=== PATIENT | male | born 1945 | race Caucasian/White ===

== ENCOUNTER → 2018-12-20 08:07 | Outpatient (CLI) | payer OTHER, SELFPAY ==
[2018-12-20 09:00] LABS: Add Manual Diff / Slide Review NO; Basophils Absolute Auto 0 /uL (0-100); Basophils Percent Auto 1.3 % (0-2); Eosinophils Absolute Auto 100 /uL (0-450); Eosinophils Percent Auto 1.9 % (2-4); Hematocrit 41.9 % (41-53); Hemoglobin 14.2 g/dL (13.5-17.5); Lymphocytes Absolute Auto 1100 /uL (1100-4500); Lymphocytes Percent Auto 34.9 % (25-40); Mean Corpuscular HGB Conc 33.8 % (30-36); Mean Corpuscular Hemoglobin 33.5 PG (26-34); Mean Corpuscular Volume 99.1 fL (80-100); Monocytes Absolute Auto 400 /uL (0-900); Monocytes Percent Auto 12.2 % (3-14); Neutrophils Absolute Auto 1600 /uL (1500-7000); Neutrophils Percent Auto 49.7 % (50-75); Platelet Count 181 X10^3/uL (150-400); Red Blood Cell Count 4.23 X10^6/uL (4.5-5.9); Red Cell Distribution Width 15.6 % (11.6-14.8); White Blood Cell Count 3.3 X10^3/uL (4.5-11.0)
[2018-12-20 09:16] LABS: Alanine Aminotransferase 24 IU/L (21-72); Albumin 4.1 g/dL (3.5-5.0); Albumin Globulin Ratio 1.5 (1.0-2.8); Alkaline Phosphatase 70 U/L (38-126); Aspartate Aminotransferase 31 IU/L (17-59); BUN Creatinine Ratio 21.1 (6-22); Bilirubin Total 0.7 mg/dL (0.2-1.3); Blood Urea Nitrogen 19 mg/dL (9-20); Carbon Dioxide 29 mmol/L (22-32); Chloride 106 mmol/L (98-107); Cholesterol 220 mg/dL (140-199); Estimated Glomerular Filt Rate > 60.0 mL/min (>60); Globulin 2.8 g/dL (1.7-4.1); Glucose 103 mg/dL (80-110); HDL Cholesterol 54 mg/dL (40-60); HEMOLYSIS < 15 (0-50); LDL Cholesterol Calculated 149 mg/dL (<100); Potassium 4.4 mmol/L (3.4-5.1); Sodium 141 mmol/L (137-145); Total Protein 6.9 g/dL (6.3-8.2); Triglycerides 85 mg/dL (35-150)
[2018-12-20 09:45] LABS: Prostate Specific Antigen Scrn 1.25 ng/mL (0.1-4.0)
== END ==
PROVIDERS: PCP Family Medicine; Visit Provider Family Medicine
DX: D72.819 Decreased white blood cell count, unspecified (principal); I10 Essential (primary) hypertension; Z12.5 Encounter for screening for malignant neoplasm of prostate; Z13.1 Encounter for screening for diabetes mellitus; Z13.220 Encounter for screening for lipoid disorders; Z13.6 Encounter for screening for cardiovascular disorders
CPT/HCPCS: 36415; 80053; 80061; 84443; 85025; G0103

== ENCOUNTER → 2020-01-04 10:09 | Outpatient (CLI) | payer OTHER, SELFPAY ==
[2020-01-04 11:40] LABS: Add Manual Diff / Slide Review NO; Basophils Absolute Auto 0 /uL (0-100); Eosinophils Absolute Auto 100 /uL (0-450); Eosinophils Percent Auto 1.5 % (2-4); Hematocrit 43.1 % (41-53); Hemoglobin 14.4 g/dL (13.5-17.5); Lymphocytes Absolute Auto 1100 /uL (1100-4500); Lymphocytes Percent Auto 27.7 % (25-40); Mean Corpuscular HGB Conc 33.4 % (30-36); Mean Corpuscular Hemoglobin 33.3 PG (26-34); Mean Corpuscular Volume 99.8 fL (80-100); Monocytes Absolute Auto 400 /uL (0-900); Neutrophils Absolute Auto 2400 /uL (1500-7000); Neutrophils Percent Auto 58.8 % (50-75); Platelet Count 173 X10^3/uL (150-400); Red Blood Cell Count 4.31 X10^6/uL (4.5-5.9); Red Cell Distribution Width 16.1 % (11.6-14.8)
[2020-01-04 12:21] LABS: Alanine Aminotransferase 26 IU/L (<50); Albumin 4.1 g/dL (3.5-5.0); Albumin Globulin Ratio 1.6 (1.0-2.8); Alkaline Phosphatase 75 U/L (38-126); Aspartate Aminotransferase 36 IU/L (17-59); BUN Creatinine Ratio 19.4 (6-22); Bilirubin Total 0.7 mg/dL (0.2-1.3); Blood Urea Nitrogen 18 mg/dL (9-20); Calcium 9.6 mg/dL (8.4-10.2); Carbon Dioxide 30 mmol/L (22-32); Chloride 102 mmol/L (98-107); Cholesterol 212 mg/dL (140-199); Estimated Glomerular Filt Rate > 60.0 mL/min (>60); Globulin 2.6 g/dL (1.7-4.1); Glucose 88 mg/dL (80-110); HDL Cholesterol 63 mg/dL (40-60); HEMOLYSIS < 15 (0-50); LDL Cholesterol Calculated 125 mg/dL (<100); Potassium 4.4 mmol/L (3.4-5.1); Sodium 138 mmol/L (137-145); Total Protein 6.7 g/dL (6.3-8.2); Triglycerides 120 mg/dL (35-150)
[2020-01-04 12:51] LABS: Thyroid Stimulating Hormone 2.75 uIU/mL (0.47-4.68)
== END ==
PROVIDERS: PCP Family Medicine; Referring Provider Family Medicine; Visit Provider Family Medicine
DX: I10 Essential (primary) hypertension (principal); C61 Malignant neoplasm of prostate
CPT/HCPCS: 36415; 80053; 80061; 84153; 84443; 85025

== ENCOUNTER → 2020-03-15 09:36 | Outpatient (CLI) | payer OTHER, SELFPAY ==
[2020-03-16 22:46] LABS: COVID19 Sendout Not Detected (Not Detect)
== END ==
PROVIDERS: PCP Family Medicine; Visit Provider Physician Assistant
DX: Z11.59 Encounter for screening for other viral diseases (principal)
CPT/HCPCS: 87635

== ENCOUNTER 2020-03-18 08:02 | Day surgery (SDC) | payer OTHER, SELFPAY ==
[2020-03-13 08:16] VITALS: BMI 38.2
[2020-03-18] VITALS (8 sets, daily range): BP systolic 140–188; BP diastolic 71–111; PULSE 70–86; RESP 9–18; TEMP 36.1–36.7; O2SAT 91–99; BMI 38.2
[2020-03-18] MEDS: LACTATED RINGERS 1,000 ML 42 ML IV (08:47)
--- NOTE | 2020-03-18 09:11 | PM.PREOP ---
Pre-operative Note COVID-19 COVID-19 status: Negative Interval Note History & Physical reviewed/Exam performed by Physician: Yes Changes to H&P: No
[2020-03-18] MEDS: LACTATED RINGERS 1,000 ML 100 ML IV (09:28)
[2020-03-18] MEDS: CEFAZOLIN 2 GM/100 ML FROZ.PIGGY IV (09:32)
--- NOTE | 2020-03-18 09:35 | SUR.OPER ---
Supine on padded OR bed, head on pillow, arms secured on padded arm boards at <90 degrees abduction, legs uncrossed, safety belt at thigh, tape over blanket over lower legs.
--- NOTE | 2020-03-18 09:45 | SUR.OPER ---
Dime size scabbed [place] on abdomen upper left quadrant. Covered by Tegaderm during procedure.
[2020-03-18] MEDS: BUPIVACAINE 0.25% (PF) VIAL 30 ML INJ (09:50)
--- NOTE | 2020-03-18 10:43 | P.OP_ITS ---
Operative Date/Time/Diagnoses Date of procedure: 03/18/20 Time of procedure: 10:43 Pre-op diagnosis: Umbilical hernia Post-op diagnosis: same Procedure & Clinicians Procedure: Open umbilical hernia repair with mesh Same procedure as scheduled: Yes Indications: Symptomatic reducible umbilical hernia Surgeon: Peyman Maravilla Anesthesia Type: General Operative Notes Findings: 2 cm umbilical fascial defect containing omentum Specimen(s): none sent Estimated Blood Loss (mL): 20 Procedure in detail: Patient was brought to the operating room placed supine on the table. Bilateral lower extremity compression devices were applied. General anesthesia was induced and they were intubated with an endotracheal tube. They received 2 g of Ancef prior to skin incision. They were prepped and draped in sterile fashion. A time-out was performed. A curvilinear incision was made inferior to the umbilicus. The subcutaneous tissues were divided. The umbilical hernia was identified and the hernia sac was dissected off the umbilical skin and circumferentially off of the fascia defect. The hernia sac was sharply opened and contained incarcerated omentum. I was able to reduce its content back into the abdomen. I freshened the fascial edges of the defect measured. Using blunt dissection I carefully carefully freed the hernia sac from beneath the fascia defect in order to accomodate the mesh. The fascia defect was 2 cm in maximal diameter. A Bard Ventralex ST hernia patch 6.3 cm was inserted beneath the fascia defect and above the peritoneum in a sublay position. The mesh was anchored in multiple locations using 0 Ethibond. The fascia defect was then reapproximated with 0 Ethibond in a transverse direction. The umbilical skin was tacked to the subcutaneous tissues and then the remainder of the subcutaneous tissues were reapproximated using 3 0 Vicry,l skin closed with 4 0 Monocryl followed by the application of Dermabond and Steri- Strips. Sponge instrument count at the end of the operation was correct. Patient tolerated procedure well was extubated and transferred to postoperative care unit in stable condition. Complications: none Post-operative Condition: stable Disposition: same day surgery
[2020-03-18] MEDS: fentaNYL 100 MCG/2 ML INJ IV ×2 (10:56→11:03)
--- NOTE | 2020-03-18 11:05 | SUR.PHASEI ---
HR AFIB per EKG. Patient asymptomatic. Dr. Maravilla notified, patient to follow up with PCP per MD. Patient notified.
[2020-03-18] MEDS: HYDROCODONE/ACET 5/325 TABLET 1 TAB PO (11:19)
--- NOTE | 2020-03-18 12:29 | SUR.PHASEII ---
Copy of EKG given to patient and . Stressed to patient the importance of following up with his PMD regarding Afib. V/U. Instructed to return to ER if any CP or SOB. V/U. Dressing to umbilicus clean, dry and intact. Patient to main entrance via wheelchair in stable condition.
== END 2020-03-18 12:31 | disposition home or self-care (01) ==
PROVIDERS: PCP Family Medicine; Referring Provider Family Medicine; Visit Provider Surgery
PROC: (CPT 49585; principal; 2020-03-18 09:15)
DX: K42.9 Umbilical hernia without obstruction or gangrene (principal); E66.01 Morbid (severe) obesity due to excess calories; I10 Essential (primary) hypertension; Z68.38 Body mass index [BMI] 38.0-38.9, adult
CPT/HCPCS: 49585; 93005; C1781; J0690; J3010

== ENCOUNTER → 2020-03-24 12:51 | Outpatient (CLI) | payer OTHER, SELFPAY ==
[2020-03-24 13:37] LABS: Add Manual Diff / Slide Review NO; Basophils Absolute Auto 0 /uL (0-100); Basophils Percent Auto 0.9 % (0-2); Eosinophils Absolute Auto 100 /uL (0-450); Eosinophils Percent Auto 1.8 % (2-4); Hematocrit 41.9 % (41-53); Hemoglobin 13.9 g/dL (13.5-17.5); Lymphocytes Absolute Auto 900 /uL (1100-4500); Lymphocytes Percent Auto 18.5 % (25-40); Mean Corpuscular HGB Conc 33.3 % (30-36); Mean Corpuscular Hemoglobin 33.9 PG (26-34); Mean Corpuscular Volume 101.8 fL (80-100); Monocytes Absolute Auto 400 /uL (0-900); Monocytes Percent Auto 8.4 % (3-14); Neutrophils Absolute Auto 3600 /uL (1500-7000); Neutrophils Percent Auto 70.4 % (50-75); Platelet Count 170 X10^3/uL (150-400); Red Blood Cell Count 4.12 X10^6/uL (4.5-5.9); Red Cell Distribution Width 13.9 % (11.6-14.8); White Blood Cell Count 5.1 X10^3/uL (4.5-11.0)
[2020-03-24 14:00] LABS: BUN Creatinine Ratio 24.5 (6-22); Blood Urea Nitrogen 23 mg/dL (9-20); Calcium 8.8 mg/dL (8.4-10.2); Carbon Dioxide 30 mmol/L (22-32); Chloride 105 mmol/L (98-107); Estimated Glomerular Filt Rate > 60.0 mL/min (>60); Glucose 90 mg/dL (80-110); HEMOLYSIS < 15 (0-50); Magnesium 2.4 mg/dL (1.6-2.3); Potassium 4.3 mmol/L (3.4-5.1); Sodium 140 mmol/L (137-145)
== END ==
PROVIDERS: PCP Family Medicine; Referring Provider Family Medicine; Visit Provider Family Medicine
DX: I48.91 Unspecified atrial fibrillation (principal)
CPT/HCPCS: 36415; 80048; 83735; 85025

== ENCOUNTER → 2020-04-08 07:59 | Outpatient (CLI) | payer OTHER, SELFPAY ==
--- NOTE | 2020-04-08 08:01 | DI.ECHO.S_ITS ---
[facility] +---------+ [facility] +---------+ : : [address] : [place] : : : : [id number] : : : : Phone: [phone]+ Echocardiogram Report + + :Name: HANNA BEYER Study Date: 04/08/2020 Height: 70 in : :[facility] Weight: 250 lb : : Gender: Male BSA: 2.3 m2 : :: 1945 Age: 74 yrs BP: 149/91 mmHg: :Reason For Study: AFIB : :Ordering Physician: DEWEY FRANCESPerformed By: Katerin Cardona : :Referring: DEWEY FRANCES : + + Interpretation Summary The left ventricle is normal in size. The ejection fraction is estimated to be 60-65%. The right ventricle is normal in size and function. There is mild to moderate mitral regurgitation. There is mild aortic regurgitation. The ascending aorta is mildly enlarged. Procedure: A two-dimensional transthoracic echocardiogram with color flow and Doppler was performed. The study quality was technically adequate. There is no prior echocardiogram noted for this patient. The patient was in atrial fibrillation with heart rates between 64-80 bpm during the exam. Left Ventricle: The left ventricle is normal in size. There is mild concentric left ventricular hypertrophy. There is no thrombus. The ejection fraction is estimated to be 60-65%. There are no focal wall motion abnormalities. Diastolic function could not be accurately assessed due to atrial fibrillation. E/E' med: 13.8. Right Ventricle: The right ventricle is normal in size and function. Atria: The left atrium is severely dilated. The right atrium is mildly dilated. A patent foramen ovale is suspected. Mitral Valve: The mitral valve leaflets appear mildly thickened, but open well. The mitral valve leaflets are slightly calcified. There is mild to moderate mitral regurgitation. Aortic Valve: The aortic valve is trileaflet. The aortic valve opens well. The aortic valve is slightly calcified. There is no aortic valve stenosis. There is mild aortic regurgitation. Tricuspid Valve: The tricuspid valve is normal. There is mild tricuspid regurgitation. Pulmonary artery pressures cannot be estimated because of the lack of a measurable TR jet velocity but the IVC suggests a CVP of around 3 mmHg. Pulmonic Valve: The pulmonic valve leaflets are thin and pliable; valve motion is normal. There is trace pulmonic regurgitation. Great Vessels: The aortic root is mildly dilated. The ascending aorta is mildly enlarged. The IVC is of normal diameter and collapses greater than 50% with a sniff. This suggests a low right atrial pressure of 3 mm Hg. Pericardium/ Pleura There is no pericardial effusion. There is an anterior echo-free space consistent with a fat pad. There is no pleural effusion. MMode/2D Measurements & Calculations LVIDd: 5.8 cm LVOT diam: 2.4 cm LVIDs: 4.1 cm Ao root diam: 4.1 cm FS: 29.5 % asc Aorta Diam: 4.1 cm EPSS: 0.92 cm Ao Arch Diam (Prox Trans): 3.5 cm IVSd: 1.1 cm LVPWd: 1.0 cm LV spencer. diameter/BSA (cm/m^2): 2.5 LV sys. diameter/BSA (cm/m^2): 1.8 LA A2 area: 31.0 cm2 RA long axis: 5.9 cm LA A4 area: 28.4 cm2 RA area: 22.3 cm2 LA length (vol): 6.7 cm RA vol: 71.1 ml LA vol: 111.5 ml RA : 31.0 ml/m2 LA vol index: 48.6 ml/m2 IVC diam: 1.8 cm RVD1 (basal): 3.3 cm TAPSE: 2.3 cm Doppler Measurements & Calculations Ao V2 max: 149.1 cm/sec LVOT Max Gibran: 96.6 cm/sec Ao V2 mean: 97.9 cm/sec LV V1 max P.7 mmHg Ao max P.0 mmHg LV V1 VTI: 19.2 cm Ao mean P.5 mmHg GREGORIO(I,D): 3.1 cm2 Ao V2 VTI: 26.9 cm GREGORIO(V,D): 2.8 cm2 sev ratio: 0.72 GREGORIO indexed to BSA (cm^2/m^2): 1.4 AI P1/2t: 692.1 msec AI dec slope: 167.4 cm/sec2 MV E max gibran: 92.2 cm/sec PA V2 max: 77.4 cm/sec MV A max gibran: 0.77 cm/sec PA V2 mean: 54.6 cm/sec MV E/A: 119.7 PA mean P.3 mmHg Med Peak E' Gibran: 6.7 cm/sec PA pr(Accel): 31.0 mmHg E/E' med: 13.8 Lat Peak E' Gibran: 11.1 cm/sec E/E' lat: 8.3 E/e' average: 11.0 MV dec time: 0.14 sec SV(OT): 84.5 ml Reading Physician:05:43 PM
== END ==
PROVIDERS: PCP Family Medicine; Referring Provider Family Medicine; Visit Provider Family Medicine
DX: I48.91 Unspecified atrial fibrillation (principal); I34.0 Nonrheumatic mitral (valve) insufficiency; I35.1 Nonrheumatic aortic (valve) insufficiency; Q25.49 Other congenital malformations of aorta
CPT/HCPCS: 93306

== ENCOUNTER → 2020-05-16 09:15 | Outpatient (CLI) | payer OTHER, SELFPAY ==
[2020-05-16 10:32] LABS: BUN Creatinine Ratio 19.4 (6-22); Blood Urea Nitrogen 19 mg/dL (9-20); Calcium 9.4 mg/dL (8.4-10.2); Carbon Dioxide 35 mmol/L (22-32); Chloride 104 mmol/L (98-107); Estimated Glomerular Filt Rate > 60.0 mL/min (>60); Glucose 103 mg/dL (80-110); HEMOLYSIS < 15 (0-50); Potassium 4.8 mmol/L (3.4-5.1); Sodium 139 mmol/L (137-145)
== END ==
PROVIDERS: PCP Family Medicine; Referring Provider Nurse Practitioner; Visit Provider Nurse Practitioner
DX: Z51.81 Encounter for therapeutic drug level monitoring (principal); Z79.899 Other long term (current) drug therapy
CPT/HCPCS: 36415; 80048

== ENCOUNTER → 2021-06-16 09:01 | Outpatient (CLI) | payer OTHER, SELFPAY ==
[2021-06-16 11:17] LABS: Cholesterol 166 mg/dL (140-199); HDL Cholesterol 42 mg/dL (40-60); LDL Cholesterol Calculated 109 mg/dL (<100); Triglycerides 74 mg/dL (35-150)
== END ==
PROVIDERS: PCP Family Medicine; Referring Provider Internal Medicine Cardiovascular Disease; Visit Provider Internal Medicine Cardiovascular Disease
DX: I10 Essential (primary) hypertension (principal)
CPT/HCPCS: 36415; 80061

== ENCOUNTER → 2021-12-02 08:17 | Outpatient (CLI) | payer OTHER, SELFPAY ==
[2021-12-02 08:56] LABS: HEMOLYSIS < 15 (0-50)
[2021-12-02 09:06] LABS: Alanine Aminotransferase 22 IU/L (<50); Albumin Globulin Ratio 1.5 (1.0-2.8); Alkaline Phosphatase 78 U/L (38-126); Aspartate Aminotransferase 34 IU/L (17-59); BUN Creatinine Ratio 17.5 (6-22); Bilirubin Total 0.8 mg/dL (0.2-1.3); Blood Urea Nitrogen 18 mg/dL (9-20); Calcium 8.8 mg/dL (8.4-10.2); Carbon Dioxide 32 mmol/L (22-32); Chloride 105 mmol/L (98-107); Cholesterol 123 mg/dL (140-199); Estimated Glomerular Filt Rate > 60 mL/min (>60); Globulin 2.7 g/dL (1.7-4.1); Glucose 97 mg/dL (80-110); HDL Cholesterol 39 mg/dL (40-60); LDL Cholesterol Calculated 73 mg/dL (<100); Potassium 4.3 mmol/L (3.4-5.1); Sodium 140 mmol/L (137-145); Total Protein 6.7 g/dL (6.3-8.2); Triglycerides 53 mg/dL (35-150)
== END ==
PROVIDERS: PCP Family Medicine; Referring Provider Internal Medicine Cardiovascular Disease; Visit Provider Internal Medicine Cardiovascular Disease
DX: I10 Essential (primary) hypertension (principal)
CPT/HCPCS: 36415; 80053; 80061

== ENCOUNTER → 2022-02-08 08:33 | Outpatient (CLI) | payer OTHER, SELFPAY | PROVIDERS: PCP Family Medicine | DX: C61 Malignant neoplasm of prostate (principal) | CPT/HCPCS: 36415; 84153 ==

== ENCOUNTER 2022-05-10 14:30 | Outpatient (RCR) | payer OTHER, SELFPAY ==
--- NOTE | 2022-04-09 14:37 | PT.OIE ---
Current Diagnoses Pain in left shoulder (04/09/22) Past Medical History (Last Reviewed 01/29/21 @ 15:43 by SANJEEV Curtis) Facial injury History of prostate cancer History of torn meniscus of left knee Hx of skin malignancy Wound infection Visit Care Team Role Provider Type Jacob Brennan DO Attending Provider Physician Family Provider Primary Care Provider Referring Provider Specialty: Family Practice Address: [address] [place] [address], [facility] Email: [email or web address] Physical Therapy Initial Evaluation PT-OP-A Visit Information Start: 04/08/22 20:22 Freq: Status: Active Protocol: Document 04/09/22 07:55 AMB (Rec: 04/09/22 08:23 AMB [id number]) Out-Patient Physical Therapy Visit Information Visit Information Visit Type Initial Evaluation Visit Start Time 08:15 Visit Stop Time 09:00 Total Visit Minutes 45 Visit Number 1 PT-OP-B Current Condition Start: 04/08/22 20:22 Freq: Status: Active Protocol: Document 04/09/22 07:55 AMB (Rec: 04/09/22 08:23 AMB [id number]) Current Condition History of Current Condition Onset Date 2 years Current Complaints L shoulder pain History of Current Condition Shoulder had been bothering him for awhile, did too much weights with exercise. REaching overhead, especially with weight, reaching behind back for. L handed and L shoulder. Likes to golf, likes to work out at the home gym. Has been laying off the home gym for about a year. Deep ache in the front of the shoulder. Denies radiation of sx/neck pain/numbness tingling. Personal Factors Other Personal Factors That May Effect HTN, on eliquis, [place] Therapy/Recovery PT-OP-K Range of Motion Start: 04/08/22 20:22 Freq: Status: Active Protocol: Document 04/09/22 08:15 AMB (Rec: 04/11/22 14:15 AMB [id number]) Shoulder Goniometric Range of Motion Shoulder Left Passive Testing Position Supine Abduction 133 External Rotation at 90 degrees 37 Abduction Internal Rotation 75 Left Active Testing Position Sitting Flexion 155 Abduction 90 Right Active Testing Position Sitting Flexion 167 Abduction 180 PT-OP-L Special Tests Start: 04/08/22 20:22 Freq: Status: Active Protocol: Document 04/09/22 08:15 AMB (Rec: 04/11/22 14:15 AMB [id number]) Special Tests Shoulder Special Tests Neer Impingement Test Results + PT-OP-M Strength Start: 04/08/22 20:22 Freq: Status: Active Protocol: Document 04/09/22 08:15 AMB (Rec: 04/11/22 14:21 AMB [id number]) Shoulder Strength Shoulder Manual Muscle Testing Left Flexion 4 Good Extension 4+ Good+ Abduction (C5) 3+ Fair+ External Rotation 4 Good Internal Rotation 4 Good PT-OP-Q Treatments Start: 04/08/22 20:22 Freq: Status: Active Protocol: Document 04/09/22 08:15 AMB (Rec: 04/11/22 14:15 AMB [id number]) Therapeutic Exercises Sidelying Exercises sleeper stretch Side left Reps/Minutes 30x2 Standing Exercises rows Side bilateral Resistance #4 band Reps/Minutes 2x10 pec stretch corner Side bilateral Reps/Minutes 30x2 Comments abd to 45 to avoid pain PT-OP-T Assessment and Plan Start: 04/08/22 20:22 Freq: Status: Active Protocol: Document 04/09/22 08:15 AMB (Rec: 04/11/22 14:37 AMB [id number]) Physical Therapy Assessment Rehab Potential Rehabilitation Potential Good Evaluation Complexity Number of Personal Factors/Comorbidities 1-2 Number of Body Systems Impaired 3 Clinical Presentation at Evaluation Stable Impairments Impairments Pain,Posture,ROM Goals Two Impairment Pain Short Term Goal (STG) Jevon will put dishes away with 1/10 shoulder pain or less. STG Duration 4 weeks De Icer Installer Goal (LTG) Jevon will reach behind his back to don/doff his belt with pain of 1/10 or less. LTG Duration 8 weeks One Impairment ROM Short Term Goal (STG) Jevon will improve his external rotation to at least 50 degrees passively. STG Duration 4 weeks Intermediate Goal (LTG) Jevon will improve his active abduction to at least 120 degrees. LTG Duration 8 weeks Assessment Summary Assessment Jevon attends PT with restricted and painful left shoulder ROM. He has maintained good strength when the arm is kept in a neutral position. Pain is the worst in abduction and extension/ internal rotation like to reach behind his body for his belt. Denies clicking/locking /radiating sx. Concern for labrum/rotator cuff/biceps tendonopathy. Good strength in biceps. Jevon will benefit from physical therapy for a gentle progression with scapular strengthening with special focus on postures to reduce anterior impingement. Physical Therapy Plan Frequency and Duration Frequency of Treatment 2x/Week Duration of treatment (weeks) 10 Plan of Care Start Date 04/09/22 Plan of Care End Date 06/18/22 Therapeutic Interventions Therapeutic Interventions Home Exercise Program,Joint Mobilizations,Manual Therapy, Neuromuscular Re-education, Self-Care/Home Management, Therapeutic Activities, Therapeutic Exercises Modalities Cold Pack/Ice Massage,Electric Stimulation,Iontophoresis Other Therapeutic Interventions iontophoresis with dexamethasone Next Visit Focus/Plan Next Note Type Treatment Note Next Visit Plan REassess piotr, sleeper stretches and t band rows
--- NOTE | 2022-04-09 14:38 | PT.OPPOC ---
Physical, Occupational & Speech Therapy At Current Diagnoses Pain in left shoulder (04/09/22) Visit Care Team Role Provider Type Jacob Brennan DO Attending Provider Physician Family Provider Primary Care Provider Referring Provider Specialty: Family Practice Address: [address] [place] [address], [id number] Email: [email or web address] Plan Of Care PT-OP-T Assessment and Plan Start: 04/08/22 20:22 Freq: Status: Active Protocol: Document 04/09/22 08:15 AMB (Rec: 04/11/22 14:37 AMB [id number]) Physical Therapy Assessment Rehab Potential Rehabilitation Potential Good Evaluation Complexity Number of Personal Factors/Comorbidities 1-2 Number of Body Systems Impaired 3 Clinical Presentation at Evaluation Stable Impairments Impairments Pain,Posture,ROM Goals Two Impairment Pain Short Term Goal (STG) Jevon will put dishes away with 1/10 shoulder pain or less. STG Duration 4 weeks Assisted Goal (LTG) Jevon will reach behind his back to don/doff his belt with pain of 1/10 or less. LTG Duration 8 weeks One Impairment ROM Short Term Goal (STG) Jevon will improve his external rotation to at least 50 degrees passively. STG Duration 4 weeks Assisted Goal (LTG) Jevon will improve his active abduction to at least 120 degrees. LTG Duration 8 weeks Assessment Summary Assessment Jevon attends PT with restricted and painful left shoulder ROM. He has maintained good strength when the arm is kept in a neutral position. Pain is the worst in abduction and extension/ internal rotation like to reach behind his body for his belt. Denies clicking/locking /radiating sx. Concern for labrum/rotator cuff/biceps tendonopathy. Good strength in biceps. Jevon will benefit from physical therapy for a gentle progression with scapular strengthening with special focus on postures to reduce anterior impingement. Physical Therapy Plan Frequency and Duration Frequency of Treatment 2x/Week Duration of treatment (weeks) 10 Plan of Care Start Date 04/09/22 Plan of Care End Date 06/18/22 Therapeutic Interventions Therapeutic Interventions Home Exercise Program,Joint Mobilizations,Manual Therapy, Neuromuscular Re-education, Self-Care/Home Management, Therapeutic Activities, Therapeutic Exercises Modalities Cold Pack/Ice Massage,Electric Stimulation,Iontophoresis Other Therapeutic Interventions iontophoresis with dexamethasone Next Visit Focus/Plan Next Note Type Treatment Note Next Visit Plan REassess corner, sleeper stretches and t band rows Plan of Care Dates Plan of Care Start Date 04/09/22 Plan of Care End Date 06/18/22 Electronically Signed by: Ricarda Fontanez, PT 04/11/22 2077 If you are in agreement with this Plan of Care, please return a signed and dated copy. I have reviewed this Plan of Care and certify that the skilled therapy services above are required to meet the patient?s needs. Physician Signature Date Printed Name and Credentials Clinical Instructor Signature Printed Name and Credentials
--- NOTE | 2022-04-14 13:24 | PT.OTN ---
Current Diagnoses Pain in left shoulder (04/14/22) Physical Therapy Treatment Note PT-OP-A Visit Information Start: 04/08/22 20:22 Freq: Status: Active Protocol: Document 04/14/22 08:24 AMB (Rec: 04/14/22 09:03 AMB [id number]) Out-Patient Physical Therapy Visit Information Visit Information Visit Type Treatment Note Visit Start Time 08:15 Visit Stop Time 09:00 Total Visit Minutes 45 Visit Number 2 PT-OP-B Current Condition Start: 04/08/22 20:22 Freq: Status: Active Protocol: Document 04/09/22 07:55 AMB (Rec: 04/09/22 08:23 AMB [id number]) Current Condition History of Current Condition Onset Date 2 years Current Complaints L shoulder pain History of Current Condition Shoulder had been bothering him for awhile, did too much weights with exercise. REaching overhead, especially with weight, reaching behind back for. L handed and L shoulder. Likes to golf, likes to work out at the home gym. Has been laying off the home gym for about a year. Deep ache in the front of the shoulder. Denies radiation of sx/neck pain/numbness tingling. Personal Factors Other Personal Factors That May Effect HTN, on eliquis, [place] Therapy/Recovery PT-OP-C Subjective Start: 04/08/22 20:22 Freq: Status: Active Protocol: Document 04/14/22 08:24 AMB (Rec: 04/14/22 09:03 AMB [id number]) OP-PT Subjective Patient Comments Patient Comments Pt reports exercises are going well, has to warm up first with the stretches. PT-OP-K Range of Motion Start: 04/08/22 20:22 Freq: Status: Active Protocol: Document 04/09/22 08:15 AMB (Rec: 04/11/22 14:15 AMB [id number]) Shoulder Goniometric Range of Motion Shoulder Left Passive Testing Position Supine Abduction 133 External Rotation at 90 degrees 37 Abduction Internal Rotation 75 Left Active Testing Position Sitting Flexion 155 Abduction 90 Right Active Testing Position Sitting Flexion 167 Abduction 180 PT-OP-L Special Tests Start: 04/08/22 20:22 Freq: Status: Active Protocol: Document 04/09/22 08:15 AMB (Rec: 04/11/22 14:15 AMB [id number]) Special Tests Shoulder Special Tests Neer Impingement Test Results + PT-OP-M Strength Start: 04/08/22 20:22 Freq: Status: Active Protocol: Document 04/09/22 08:15 AMB (Rec: 04/11/22 14:21 AMB [id number]) Shoulder Strength Shoulder Manual Muscle Testing Left Flexion 4 Good Extension 4+ Good+ Abduction (C5) 3+ Fair+ External Rotation 4 Good Internal Rotation 4 Good PT-OP-Q Treatments Start: 04/08/22 20:22 Freq: Status: Active Protocol: Document 04/14/22 08:24 AMB (Rec: 04/14/22 09:03 AMB [id number]) Gym Equipment Cable Column (Body Solid) Rows Resistance 30 Reps/Time 2x10 Therapeutic Exercises Sidelying Exercises sleeper stretch Side left Reps/Minutes 30x2 Sitting Exercises neftaly Sitting Exercise Name abd, scaption Reps/Minutes 3 min Standing Exercises t band IR Resistance #2 Reps/Minutes 2x10 t band ER Resistance #2 Reps/Minutes 2x10 rows Side bilateral Resistance #4 band Reps/Minutes 2x10 pec stretch corner Side bilateral Reps/Minutes 30x2 Comments abd to 45 to avoid pain Manual Therapy Treatment Soft Tissue Mobilization 1 Body Location subscap Comments with PROM into flex/abd, PT-OP-T Assessment and Plan Start: 04/08/22 20:22 Freq: Status: Active Protocol: Document 04/14/22 08:24 AMB (Rec: 04/14/22 09:03 AMB [id number]) Physical Therapy Assessment Goals Two Impairment Pain Short Term Goal (STG) Jevon will put dishes away with 1/10 shoulder pain or less. STG Duration 4 weeks Custodial Goal (LTG) Jevon will reach behind his back to don/doff his belt with pain of 1/10 or less. LTG Duration 8 weeks One Impairment ROM Short Term Goal (STG) Jevon will improve his external rotation to at least 50 degrees passively. STG Duration 4 weeks Custodial Goal (LTG) Jevon will improve his active abduction to at least 120 degrees. LTG Duration 8 weeks Assessment Summary Assessment Jevon did well with stretching today. Was fairly tight in his lats. Tolerated ER strengthening, but gentle for now. Could consider AAROM dowel vs neftaly for HEP next visit. Physical Therapy Plan Frequency and Duration Frequency of Treatment 2x/Week Duration of treatment (weeks) 10 Plan of Care Start Date 04/09/22 Plan of Care End Date 06/18/22 Next Visit Focus/Plan Next Note Type Treatment Note Next Visit Plan REassess corner, sleeper stretches and t band rows, progress t band HEP, consider AAROM.
--- NOTE | 2022-04-19 08:40 | PT.OTN ---
Current Diagnoses Pain in left shoulder (04/19/22) Physical Therapy Treatment Note PT-OP-A Visit Information Start: 04/08/22 20:22 Freq: Status: Active Protocol: Document 04/19/22 13:26 AMB (Rec: 04/19/22 14:50 AMB [id number]) Out-Patient Physical Therapy Visit Information Visit Information Visit Type Treatment Note Visit Start Time 13:45 Visit Stop Time 14:30 Total Visit Minutes 45 Visit Number 3 PT-OP-B Current Condition Start: 04/08/22 20:22 Freq: Status: Active Protocol: Document 04/09/22 07:55 AMB (Rec: 04/09/22 08:23 AMB [id number]) Current Condition History of Current Condition Onset Date 2 years Current Complaints L shoulder pain History of Current Condition Shoulder had been bothering him for awhile, did too much weights with exercise. REaching overhead, especially with weight, reaching behind back for. L handed and L shoulder. Likes to golf, likes to work out at the home gym. Has been laying off the home gym for about a year. Deep ache in the front of the shoulder. Denies radiation of sx/neck pain/numbness tingling. Personal Factors Other Personal Factors That May Effect HTN, on eliquis, [place] Therapy/Recovery PT-OP-C Subjective Start: 04/08/22 20:22 Freq: Status: Active Protocol: Document 04/19/22 13:26 AMB (Rec: 04/19/22 14:50 AMB [id number]) OP-PT Subjective Patient Comments Patient Comments Pt reports he could feel some muscles after last PT visit. PT-OP-K Range of Motion Start: 04/08/22 20:22 Freq: Status: Active Protocol: Document 04/09/22 08:15 AMB (Rec: 04/11/22 14:15 AMB [id number]) Shoulder Goniometric Range of Motion Shoulder Left Passive Testing Position Supine Abduction 133 External Rotation at 90 degrees 37 Abduction Internal Rotation 75 Left Active Testing Position Sitting Flexion 155 Abduction 90 Right Active Testing Position Sitting Flexion 167 Abduction 180 PT-OP-L Special Tests Start: 04/08/22 20:22 Freq: Status: Active Protocol: Document 04/09/22 08:15 AMB (Rec: 04/11/22 14:15 AMB [id number]) Special Tests Shoulder Special Tests Neer Impingement Test Results + PT-OP-M Strength Start: 04/08/22 20:22 Freq: Status: Active Protocol: Document 04/09/22 08:15 AMB (Rec: 04/11/22 14:21 AMB [id number]) Shoulder Strength Shoulder Manual Muscle Testing Left Flexion 4 Good Extension 4+ Good+ Abduction (C5) 3+ Fair+ External Rotation 4 Good Internal Rotation 4 Good PT-OP-Q Treatments Start: 04/08/22 20:22 Freq: Status: Active Protocol: Document 04/19/22 13:26 AMB (Rec: 04/19/22 14:50 AMB [id number]) Gym Equipment Cable Column (Body Solid) ER Resistance 10 Reps/Time 4- weak IR Resistance 10 Reps/Time 10 Rows Resistance 30 Reps/Time 2x10 Therapeutic Exercises Supine Exercises AAROM Supine Exercise Name cane Reps/Minutes 30x2 Comments flexion Sidelying Exercises sleeper stretch Side left Reps/Minutes 30x2 Sitting Exercises neftaly Sitting Exercise Name abd, scaption Reps/Minutes 3 min Standing Exercises wall walk Standing Exercise Name and lift off Reps/Minutes 10 t band IR Resistance #2 Reps/Minutes 2x10 t band ER Resistance #2 Reps/Minutes 2x10 rows Side bilateral Resistance #4 band Reps/Minutes 2x10 Manual Therapy Treatment Soft Tissue Mobilization 1 Body Location subscap Comments with PROM into flex/abd, PT-OP-T Assessment and Plan Start: 04/08/22 20:22 Freq: Status: Active Protocol: Document 04/19/22 13:26 AMB (Rec: 04/19/22 14:50 AMB [id number]) Physical Therapy Assessment Goals Two Impairment Pain Short Term Goal (STG) Jevon will put dishes away with 1/10 shoulder pain or less. STG Duration 4 weeks Primary Care Provider Goal (LTG) Jevon will reach behind his back to don/doff his belt with pain of 1/10 or less. LTG Duration 8 weeks One Impairment ROM Short Term Goal (STG) Jevon will improve his external rotation to at least 50 degrees passively. STG Duration 4 weeks Mcfp Goal (LTG) Jevon will improve his active abduction to at least 120 degrees. LTG Duration 8 weeks Assessment Summary Assessment Continues to need more L shoulder stretching, so far has not had increased pain with stretching. Weak into ER continues. Physical Therapy Plan Next Visit Focus/Plan Next Visit Plan Progress t band and stretching
--- NOTE | 2022-04-21 21:37 | PT.OTN ---
Current Diagnoses Pain in left shoulder (04/21/22) Physical Therapy Treatment Note PT-OP-A Visit Information Start: 04/08/22 20:22 Freq: Status: Active Protocol: Document 04/21/22 13:48 AMB (Rec: 04/21/22 14:24 AMB [id number]) Out-Patient Physical Therapy Visit Information Visit Information Visit Type Treatment Note Visit Start Time 13:45 Visit Stop Time 14:30 Total Visit Minutes 45 Visit Number 4 PT-OP-B Current Condition Start: 04/08/22 20:22 Freq: Status: Active Protocol: Document 04/09/22 07:55 AMB (Rec: 04/09/22 08:23 AMB [id number]) Current Condition History of Current Condition Onset Date 2 years Current Complaints L shoulder pain History of Current Condition Shoulder had been bothering him for awhile, did too much weights with exercise. REaching overhead, especially with weight, reaching behind back for. L handed and L shoulder. Likes to golf, likes to work out at the home gym. Has been laying off the home gym for about a year. Deep ache in the front of the shoulder. Denies radiation of sx/neck pain/numbness tingling. Personal Factors Other Personal Factors That May Effect HTN, on eliquis, [place] Therapy/Recovery PT-OP-C Subjective Start: 04/08/22 20:22 Freq: Status: Active Protocol: Document 04/21/22 13:48 AMB (Rec: 04/21/22 14:24 AMB [id number]) OP-PT Subjective Patient Comments Patient Comments Pt is getting an injection tomorrow with PCP. PT-OP-K Range of Motion Start: 04/08/22 20:22 Freq: Status: Active Protocol: Document 04/09/22 08:15 AMB (Rec: 04/11/22 14:15 AMB [id number]) Shoulder Goniometric Range of Motion Shoulder Left Passive Testing Position Supine Abduction 133 External Rotation at 90 degrees 37 Abduction Internal Rotation 75 Left Active Testing Position Sitting Flexion 155 Abduction 90 Right Active Testing Position Sitting Flexion 167 Abduction 180 PT-OP-L Special Tests Start: 04/08/22 20:22 Freq: Status: Active Protocol: Document 04/09/22 08:15 AMB (Rec: 04/11/22 14:15 AMB [id number]) Special Tests Shoulder Special Tests Neer Impingement Test Results + PT-OP-M Strength Start: 04/08/22 20:22 Freq: Status: Active Protocol: Document 04/09/22 08:15 AMB (Rec: 04/11/22 14:21 AMB [id number]) Shoulder Strength Shoulder Manual Muscle Testing Left Flexion 4 Good Extension 4+ Good+ Abduction (C5) 3+ Fair+ External Rotation 4 Good Internal Rotation 4 Good PT-OP-Q Treatments Start: 04/08/22 20:22 Freq: Status: Active Protocol: Document 04/21/22 13:45 AMB (Rec: 04/22/22 21:35 AMB [id number]) Gym Equipment Cable Column (Body Solid) Lat Pull Down Resistance 30 Reps/Time 2x10 Therapeutic Exercises Supine Exercises AAROM Supine Exercise Name cane Reps/Minutes 30x2 Comments flexion Sitting Exercises neftaly Sitting Exercise Name abd, scaption Reps/Minutes 3 min Standing Exercises flexion Standing Exercise Name to shoulder height only Resistance 5# Reps/Minutes 2x10 t band IR Resistance #2 Reps/Minutes 2x10 t band ER Resistance #2 Reps/Minutes 2x10 Other Exercises rows Other Exercise Name chest on t ball Side bilateral Resistance 5# Reps/Minutes 2x10 I Y T Other Exercise Name chest on t ball Side bilateral Resistance AROM Reps/Minutes 2x10 nick pose Side bilateral Reps/Minutes 30x2 PT-OP-T Assessment and Plan Start: 04/08/22 20:22 Freq: Status: Active Protocol: Document 04/21/22 13:48 AMB (Rec: 04/21/22 14:24 AMB [id number]) Physical Therapy Assessment Goals Two Impairment Pain Short Term Goal (STG) Jevon will put dishes away with 1/10 shoulder pain or less. STG Duration 4 weeks Fpc Goal (LTG) Jevon will reach behind his back to don/doff his belt with pain of 1/10 or less. LTG Duration 8 weeks One Impairment ROM Short Term Goal (STG) Jevon will improve his external rotation to at least 50 degrees passively. STG Duration 4 weeks Cooper Helper Goal (LTG) Jevon will improve his active abduction to at least 120 degrees. LTG Duration 8 weeks Assessment Summary Assessment Tolerated increased strengthening today without pain during session. Continues to have less ROM on affected shoulder but is improving with flexion. IR/ ext still limited. Physical Therapy Plan Frequency and Duration Frequency of Treatment 2x/Week Duration of treatment (weeks) 10 Plan of Care Start Date 04/09/22 Plan of Care End Date 06/18/22 Therapeutic Interventions Therapeutic Interventions Home Exercise Program,Joint Mobilizations,Manual Therapy, Neuromuscular Re-education, Self-Care/Home Management, Therapeutic Activities, Therapeutic Exercises Modalities Cold Pack/Ice Massage,Electric Stimulation,Iontophoresis Other Therapeutic Interventions iontophoresis with dexamethasone Next Visit Focus/Plan Next Visit Plan Progress t band and stretching
--- NOTE | 2022-04-26 16:02 | PT.OTN ---
Current Diagnoses Pain in left shoulder (04/26/22) Physical Therapy Treatment Note PT-OP-A Visit Information Start: 04/08/22 20:22 Freq: Status: Active Protocol: Document 04/26/22 14:30 AMB (Rec: 04/26/22 16:01 AMB [id number]) Out-Patient Physical Therapy Visit Information Visit Information Visit Type Treatment Note Visit Start Time 13:45 Visit Stop Time 14:30 Total Visit Minutes 45 Visit Number 5 PT-OP-B Current Condition Start: 04/08/22 20:22 Freq: Status: Active Protocol: Document 04/09/22 07:55 AMB (Rec: 04/09/22 08:23 AMB [id number]) Current Condition History of Current Condition Onset Date 2 years Current Complaints L shoulder pain History of Current Condition Shoulder had been bothering him for awhile, did too much weights with exercise. REaching overhead, especially with weight, reaching behind back for. L handed and L shoulder. Likes to golf, likes to work out at the home gym. Has been laying off the home gym for about a year. Deep ache in the front of the shoulder. Denies radiation of sx/neck pain/numbness tingling. Personal Factors Other Personal Factors That May Effect HTN, on eliquis, [email or web address] Therapy/Recovery PT-OP-C Subjective Start: 04/08/22:22 Freq: Status: Active Protocol: Document 04/26/22 14:30 AMB (Rec: 04/26/22 16:01 AMB [id number]) OP-PT Subjective Patient Comments Patient Comments Injection was on noticing more range. Was a little sore in muscles after last visit, but didn't notice extensive joint pain. PT-OP-K Range of Motion Start: 04/08/22 20:22 Freq: Status: Active Protocol: Document 04/09/22 08:15 AMB (Rec: 04/11/22 14:15 AMB [id number]) Shoulder Goniometric Range of Motion Shoulder Left Passive Testing Position Supine Abduction 133 External Rotation at 90 degrees 37 Abduction Internal Rotation 75 Left Active Testing Position Sitting Flexion 155 Abduction 90 Right Active Testing Position Sitting Flexion 167 Abduction 180 PT-OP-L Special Tests Start: 04/08/22 20:22 Freq: Status: Active Protocol: Document 04/09/22 08:15 AMB (Rec: 04/11/22 14:15 AMB [id number]) Special Tests Shoulder Special Tests Neer Impingement Test Results + PT-OP-M Strength Start: 04/08/22 20:22 Freq: Status: Active Protocol: Document 04/09/22 08:15 AMB (Rec: 04/11/22 14:21 AMB [id number]) Shoulder Strength Shoulder Manual Muscle Testing Left Flexion 4 Good Extension 4+ Good+ Abduction (C5) 3+ Fair+ External Rotation 4 Good Internal Rotation 4 Good PT-OP-Q Treatments Start: 04/08/22 20:22 Freq: Status: Active Protocol: Document 04/26/22 14:30 AMB (Rec: 04/26/22 16:01 AMB [id number]) Gym Equipment Cable Column (Body Solid) Lat Pull Down Resistance 40, 50 Reps/Time 1x10 ea ER Resistance 10 Reps/Time 18 IR Resistance 10 Reps/Time 2x10 Therapeutic Exercises Sitting Exercises neftaly Sitting Exercise Name abd, scaption, IR Reps/Minutes 3 min ea Standing Exercises wall pushups Reps/Minutes 2x10 flexion Standing Exercise Name to shoulder height only Resistance 5# Reps/Minutes 2x10 wall walk Standing Exercise Name and lift off Reps/Minutes 10 PT-OP-T Assessment and Plan Start: 04/08/22 20:22 Freq: Status: Active Protocol: Document 04/26/22 14:30 AMB (Rec: 04/26/22 16:01 AMB [id number]) Physical Therapy Assessment Goals Two Impairment Pain Short Term Goal (STG) Jevon will put dishes away with 1/10 shoulder pain or less. STG Duration 4 weeks Skilled Nursing Goal (LTG) Jevon will reach behind his back to don/doff his belt with pain of 1/10 or less. LTG Duration 8 weeks One Impairment ROM Short Term Goal (STG) Jevon will improve his external rotation to at least 50 degrees passively. STG Duration 4 weeks Skilled Nursing Goal (LTG) Jevon will improve his active abduction to at least 120 degrees. LTG Duration 8 weeks Assessment Summary Assessment Jevon was able to tolerate increase reps and is doing well with his ROM. encouraged to be careful with overhead lifting Physical Therapy Plan Frequency and Duration Frequency of Treatment 2x/Week Duration of treatment (weeks) 10 Plan of Care Start Date 04/09/22 Plan of Care End Date 06/18/22 Therapeutic Interventions Therapeutic Interventions Home Exercise Program,Joint Mobilizations,Manual Therapy, Neuromuscular Re-education, Self-Care/Home Management, Therapeutic Activities, Therapeutic Exercises Modalities Cold Pack/Ice Massage,Electric Stimulation,Iontophoresis Other Therapeutic Interventions iontophoresis with dexamethasone Next Visit Focus/Plan Next Visit Plan Progress t band and stretching
--- NOTE | 2022-04-28 16:00 | PT.OTN ---
Current Diagnoses Pain in left shoulder (04/28/22) Physical Therapy Treatment Note PT-OP-A Visit Information Start: 04/08/22 20:22 Freq: Status: Active Protocol: Document 04/28/22 13:03 AMB (Rec: 04/28/22 13:45 AMB [id number]) Out-Patient Physical Therapy Visit Information Visit Information Visit Type Treatment Note Visit Start Time 13:00 Visit Stop Time 13:45 Total Visit Minutes 45 Visit Number 6 PT-OP-B Current Condition Start: 04/08/22 20:22 Freq: Status: Active Protocol: Document 04/09/22 07:55 AMB (Rec: 04/09/22 08:23 AMB [id number]) Current Condition History of Current Condition Onset Date 2 years Current Complaints L shoulder pain History of Current Condition Shoulder had been bothering him for awhile, did too much weights with exercise. REaching overhead, especially with weight, reaching behind back for. L handed and L shoulder. Likes to golf, likes to work out at the home gym. Has been laying off the home gym for about a year. Deep ache in the front of the shoulder. Denies radiation of sx/neck pain/numbness tingling. Personal Factors Other Personal Factors That May Effect HTN, on eliquis, [place] Therapy/Recovery PT-OP-C Subjective Start: 04/08/22 20:22 Freq: Status: Active Protocol: Document 04/28/22 13:03 AMB (Rec: 04/28/22 13:45 AMB [id number]) OP-PT Subjective Patient Comments Patient Comments Pt notices a little bit of soreness after PT but just in the muscles not in the joint. PT-OP-K Range of Motion Start: 04/08/22 20:22 Freq: Status: Active Protocol: Document 04/09/22 08:15 AMB (Rec: 04/11/22 14:15 AMB [id number]) Shoulder Goniometric Range of Motion Shoulder Left Passive Testing Position Supine Abduction 133 External Rotation at 90 degrees 37 Abduction Internal Rotation 75 Left Active Testing Position Sitting Flexion 155 Abduction 90 Right Active Testing Position Sitting Flexion 167 Abduction 180 PT-OP-L Special Tests Start: 04/08/22 20:22 Freq: Status: Active Protocol: Document 04/09/22 08:15 AMB (Rec: 04/11/22 14:15 AMB [id number]) Special Tests Shoulder Special Tests Neer Impingement Test Results + PT-OP-M Strength Start: 04/08/22 20:22 Freq: Status: Active Protocol: Document 04/09/22 08:15 AMB (Rec: 04/11/22 14:21 AMB [id number]) Shoulder Strength Shoulder Manual Muscle Testing Left Flexion 4 Good Extension 4+ Good+ Abduction (C5) 3+ Fair+ External Rotation 4 Good Internal Rotation 4 Good PT-OP-Q Treatments Start: 04/08/22 20:22 Freq: Status: Active Protocol: Document 04/28/22 13:03 AMB (Rec: 04/28/22 13:45 AMB [id number]) Gym Equipment Cable Column (Body Solid) Lat Pull Down Resistance 50 Reps/Time 2x10 Rows Details 50 Reps/Time 2x10 Therapeutic Exercises Sitting Exercises neftaly Sitting Exercise Name abd, scaption, IR Reps/Minutes 3 min ea Standing Exercises wall pushups Reps/Minutes 2x10 flexion Standing Exercise Name to shoulder height only Resistance 5# Reps/Minutes 2x10 wall walk Standing Exercise Name and lift off Reps/Minutes 10 Other Exercises I Y T Other Exercise Name chest on t ball Side bilateral Resistance AROM Reps/Minutes 2x10 PT-OP-T Assessment and Plan Start: 04/08/22 20:22 Freq: Status: Active Protocol: Document 04/28/22 13:03 AMB (Rec: 04/28/22 13:45 AMB [id number]) Physical Therapy Assessment Goals Two Impairment Pain Short Term Goal (STG) Jevon will put dishes away with 1/10 shoulder pain or less. STG Duration 4 weeks Merchandise Manager Goal (LTG) Jevon will reach behind his back to don/doff his belt with pain of 1/10 or less. LTG Duration 8 weeks One Impairment ROM Short Term Goal (STG) Jevon will improve his external rotation to at least 50 degrees passively. STG Duration MET Long-Term Goal (LTG) Jevon will improve his active abduction to at least 120 degrees. LTG Duration MET Assessment Summary Assessment Jevon has had excellent improvement in his ROM. Continues to not be equal, but getting closer. Overhead lifting continues to be the most impaired. Physical Therapy Plan Frequency and Duration Frequency of Treatment 2x/Week Duration of treatment (weeks) 10 Plan of Care Start Date 04/09/22 Plan of Care End Date 06/18/22 Therapeutic Interventions Therapeutic Interventions Home Exercise Program,Joint Mobilizations,Manual Therapy, Neuromuscular Re-education, Self-Care/Home Management, Therapeutic Activities, Therapeutic Exercises Modalities Cold Pack/Ice Massage,Electric Stimulation,Iontophoresis Other Therapeutic Interventions iontophoresis with dexamethasone Next Visit Focus/Plan Next Note Type Treatment Note Next Visit Plan Progress strengthening for HEP
--- NOTE | 2022-05-10 16:00 | PT.OTN ---
Current Diagnoses Pain in left shoulder (05/10/22) Physical Therapy Treatment Note PT-OP-A Visit Information Start: 04/08/22 20:22 Freq: Status: Active Protocol: Document 05/10/22 14:37 AMB (Rec: 05/10/22 15:22 AMB [id number]) Out-Patient Physical Therapy Visit Information Visit Information Visit Type Treatment Note Visit Start Time 14:30 Visit Stop Time 15:15 Total Visit Minutes 45 Visit Number 7 PT-OP-B Current Condition Start: 04/08/22 20:22 Freq: Status: Active Protocol: Document 04/09/22 07:55 AMB (Rec: 04/09/22 08:23 AMB [id number]) Current Condition History of Current Condition Onset Date 2 years Current Complaints L shoulder pain History of Current Condition Shoulder had been bothering him for awhile, did too much weights with exercise. REaching overhead, especially with weight, reaching behind back for. L handed and L shoulder. Likes to golf, likes to work out at the home gym. Has been laying off the home gym for about a year. Deep ache in the front of the shoulder. Denies radiation of sx/neck pain/numbness tingling. Personal Factors Other Personal Factors That May Effect HTN, on eliquis, [place] Therapy/Recovery PT-OP-C Subjective Start: 04/08/22 20:22 Freq: Status: Active Protocol: Document 05/10/22 14:37 AMB (Rec: 05/10/22 15:22 AMB [id number]) OP-PT Subjective Patient Comments Patient Comments Jevon reports he has been lifting some weights at home. Has been feeling better, arm still feels weak but not as painful. PT-OP-K Range of Motion Start: 04/08/22 20:22 Freq: Status: Active Protocol: Document 04/09/22 08:15 AMB (Rec: 04/11/22 14:15 AMB [id number]) Shoulder Goniometric Range of Motion Shoulder Left Passive Testing Position Supine Abduction 133 External Rotation at 90 degrees 37 Abduction Internal Rotation 75 Left Active Testing Position Sitting Flexion 155 Abduction 90 Right Active Testing Position Sitting Flexion 167 Abduction 180 PT-OP-L Special Tests Start: 04/08/22 20:22 Freq: Status: Active Protocol: Document 04/09/22 08:15 AMB (Rec: 04/11/22 14:15 AMB [id number]) Special Tests Shoulder Special Tests Neer Impingement Test Results + PT-OP-M Strength Start: 04/08/22 20:22 Freq: Status: Active Protocol: Document 04/09/22 08:15 AMB (Rec: 04/11/22 14:21 AMB [id number]) Shoulder Strength Shoulder Manual Muscle Testing Left Flexion 4 Good Extension 4+ Good+ Abduction (C5) 3+ Fair+ External Rotation 4 Good Internal Rotation 4 Good PT-OP-Q Treatments Start: 04/08/22 20:22 Freq: Status: Active Protocol: Document 05/10/22 14:30 AMB (Rec: 05/11/22 11:09 AMB [id number]) Therapeutic Exercises Supine Exercises dumbbell flyes Side bilateral Resistance 7# Reps/Minutes 2x10 Sitting Exercises neftaly Sitting Exercise Name abd, scaption, IR Reps/Minutes 3 min ea Standing Exercises overhead press Side bilateral Resistance 7# Reps/Minutes 2x10 biceps Standing Exercise Name 10# Side bilateral Reps/Minutes 2x10 PT-OP-T Assessment and Plan Start: 04/08/22 20:22 Freq: Status: Active Protocol: Document 05/10/22 14:37 AMB (Rec: 05/10/22 15:22 AMB [id number]) Physical Therapy Assessment Goals Two Impairment Pain Short Term Goal (STG) Jevon will put dishes away with 1/10 shoulder pain or less. STG Duration MET Half-Way Goal (LTG) Jevon will reach behind his back to don/doff his belt with pain of 1/10 or less. LTG Duration MET One Impairment ROM Short Term Goal (STG) Jevon will improve his external rotation to at least 50 degrees passively. STG Duration MET Half-Way Goal (LTG) Jevon will improve his active abduction to at least 120 degrees. LTG Duration MET Assessment Summary Assessment Jevon has met all of his goals. He continues to have some unilateral weakness and ROM restriction with overhead lifting. He can perform all ADLs at this point and feels confident he can independenty return to weightlifting. He was educated in safe return to weightlifting. Physical Therapy Plan Frequency and Duration Frequency of Treatment 2x/Week Duration of treatment (weeks) 10 Plan of Care Start Date 04/09/22 Plan of Care End Date 06/18/22 Therapeutic Interventions Therapeutic Interventions Home Exercise Program,Joint Mobilizations,Manual Therapy, Neuromuscular Re-education, Self-Care/Home Management, Therapeutic Activities, Therapeutic Exercises Modalities Cold Pack/Ice Massage,Electric Stimulation,Iontophoresis Other Therapeutic Interventions iontophoresis with dexamethasone Discharge Physical Therapy Discharge Reasons Goals Met
--- NOTE | 2022-05-11 11:12 | PT.OPDS ---
Current Diagnoses Pain in left shoulder (05/10/22) Visit Care Team Role Provider Type Jacob Brennan DO Attending Provider Physician Family Provider Primary Care Provider Referring Provider Specialty: Family Practice Address: [address] [place] [address], [facility] Email: [email or web address] Visit Number Visit Number 7 Discharge Summary PT-OP-B Current Condition Start: 04/08/22 20:22 Freq: Status: Active Protocol: Document 04/09/22 07:55 AMB (Rec: 04/09/22 08:23 AMB [id number]) Current Condition History of Current Condition Onset Date 2 years Current Complaints L shoulder pain History of Current Condition Shoulder had been bothering him for awhile, did too much weights with exercise. REaching overhead, especially with weight, reaching behind back for. L handed and L shoulder. Likes to golf, likes to work out at the home gym. Has been laying off the home gym for about a year. Deep ache in the front of the shoulder. Denies radiation of sx/neck pain/numbness tingling. Personal Factors Other Personal Factors That May Effect HTN, on eliquis, [place] Therapy/Recovery PT-OP-C Subjective Start: 04/08/22 20:22 Freq: Status: Active Protocol: Document 05/10/22 14:37 AMB (Rec: 05/10/22 15:22 AMB [id number]) OP-PT Subjective Patient Comments Patient Comments Jevon reports he has been lifting some weights at home. Has been feeling better, arm still feels weak but not as painful. PT-OP-K Range of Motion Start: 04/08/22 20:22 Freq: Status: Active Protocol: Document 04/09/22 08:15 AMB (Rec: 04/11/22 14:15 AMB [id number]) Shoulder Goniometric Range of Motion Shoulder Left Passive Testing Position Supine Abduction 133 External Rotation at 90 degrees 37 Abduction Internal Rotation 75 Left Active Testing Position Sitting Flexion 155 Abduction 90 Right Active Testing Position Sitting Flexion 167 Abduction 180 PT-OP-L Special Tests Start: 04/08/22 20:22 Freq: Status: Active Protocol: Document 04/09/22 08:15 AMB (Rec: 04/11/22 14:15 AMB [id number]) Special Tests Shoulder Special Tests Neer Impingement Test Results + PT-OP-M Strength Start: 04/08/22 20:22 Freq: Status: Active Protocol: Document 04/09/22 08:15 AMB (Rec: 04/11/22 14:21 AMB [id number]) Shoulder Strength Shoulder Manual Muscle Testing Left Flexion 4 Good Extension 4+ Good+ Abduction (C5) 3+ Fair+ External Rotation 4 Good Internal Rotation 4 Good PT-OP-T Assessment and Plan Start: 04/08/22 20:22 Freq: Status: Active Protocol: Document 05/10/22 14:37 AMB (Rec: 05/10/22 15:22 AMB [id number]) Physical Therapy Assessment Goals Two Impairment Pain Short Term Goal (STG) Jevon will put dishes away with 1/10 shoulder pain or less. STG Duration MET Assisted Goal (LTG) Jevon will reach behind his back to don/doff his belt with pain of 1/10 or less. LTG Duration MET One Impairment ROM Short Term Goal (STG) Jevon will improve his external rotation to at least 50 degrees passively. STG Duration MET Assisted Goal (LTG) Jevon will improve his active abduction to at least 120 degrees. LTG Duration MET Assessment Summary Assessment Jevon has met all of his goals. He continues to have some unilateral weakness and ROM restriction with overhead lifting. He can perform all ADLs at this point and feels confident he can independenty return to weightlifting. He was educated in safe return to weightlifting. Physical Therapy Plan Frequency and Duration Frequency of Treatment 2x/Week Duration of treatment (weeks) 10 Plan of Care Start Date 04/09/22 Plan of Care End Date 06/18/22 Therapeutic Interventions Therapeutic Interventions Home Exercise Program,Joint Mobilizations,Manual Therapy, Neuromuscular Re-education, Self-Care/Home Management, Therapeutic Activities, Therapeutic Exercises Modalities Cold Pack/Ice Massage,Electric Stimulation,Iontophoresis Other Therapeutic Interventions iontophoresis with dexamethasone Discharge Physical Therapy Discharge Reasons Goals Met
== END 2022-05-12 11:40 | disposition home or self-care (01) ==
LOC: PHYS 14:30
PROVIDERS: Family Provider Family Medicine; PCP Family Medicine; Referring Provider Family Medicine; Visit Provider Family Medicine
DX: M25.512 Pain in left shoulder (principal)
CPT/HCPCS: 97110; 97140; 97161

== ENCOUNTER → 2022-10-15 07:15 | Outpatient (CLI) | payer OTHER, SELFPAY ==
[2022-10-15 08:32] LABS: Add Manual Diff / Slide Review NO; Basophils Absolute Auto 100 /uL (0-100); Basophils Percent Auto 1.4 % (0-2); Eosinophils Absolute Auto 100 /uL (0-450); Eosinophils Percent Auto 3.3 % (2-4); Hematocrit 39.2 % (41-53); Hemoglobin 13.2 g/dL (13.5-17.5); Lymphocytes Absolute Auto 1200 /uL (1100-4500); Lymphocytes Percent Auto 25.9 % (25-40); Mean Corpuscular HGB Conc 33.7 % (30-36); Mean Corpuscular Hemoglobin 31.1 PG (26-34); Mean Corpuscular Volume 92.5 fL (80-100); Monocytes Absolute Auto 500 /uL (0-900); Monocytes Percent Auto 10.3 % (3-14); Neutrophils Absolute Auto 2600 /uL (1500-7000); Neutrophils Percent Auto 59.1 % (50-75); Platelet Count 174 X10^3/uL (150-400); Red Blood Cell Count 4.24 X10^6/uL (4.5-5.9); Red Cell Distribution Width 14.2 % (11.6-14.8); White Blood Cell Count 4.4 X10^3/uL (4.5-11.0)
[2022-10-15 08:59] LABS: Alanine Aminotransferase 28 IU/L (<50); Albumin 3.5 g/dL (3.5-5.0); Albumin Globulin Ratio 1.3 (1.0-2.8); Alkaline Phosphatase 90 U/L (38-126); Aspartate Aminotransferase 29 IU/L (17-59); BUN Creatinine Ratio 18.2 (6-22); Bilirubin Total 0.9 mg/dL (0.2-1.3); Blood Urea Nitrogen 18 mg/dL (9-20); Calcium 8.7 mg/dL (8.4-10.2); Carbon Dioxide 31 mmol/L (22-32); Chloride 105 mmol/L (98-107); Cholesterol 201 mg/dL (140-199); Estimated Glomerular Filt Rate > 60 mL/min (>60); Globulin 2.6 g/dL (1.7-4.1); Glucose 93 mg/dL (80-110); HDL Cholesterol 44 mg/dL (40-60); HEMOLYSIS < 15 (0-50); LDL Cholesterol Calculated 140 mg/dL (<100); Potassium 3.9 mmol/L (3.4-5.1); Sodium 139 mmol/L (137-145); Total Protein 6.1 g/dL (6.3-8.2); Triglycerides 84 mg/dL (35-150)
[2022-10-15 09:19] LABS: Prostate Specific Antigen Scrn 5.97 ng/mL (0.1-4.0)
== END ==
PROVIDERS: Family Provider Family Medicine; PCP Family Medicine; Referring Provider Family Medicine; Visit Provider Family Medicine
DX: E78.2 Mixed hyperlipidemia (principal); Z12.5 Encounter for screening for malignant neoplasm of prostate; I48.20 Chronic atrial fibrillation, unspecified; J18.9 Pneumonia, unspecified organism; N40.0 Benign prostatic hyperplasia without lower urinary tract symptoms; Z00.00 Encounter for general adult medical examination without abnormal findings; Z79.01 Long term (current) use of anticoagulants; Z85.46 Personal history of malignant neoplasm of prostate
CPT/HCPCS: 36415; 80053; 80061; 85025; G0103

== ENCOUNTER → 2022-11-16 12:48 | Outpatient (CLI) | payer OTHER, SELFPAY ==
--- NOTE | 2022-11-16 13:39 | DI.RAD.S_ITS ---
PROCEDURE: XR CHEST 2V INDICATIONS: Recent pneumonia continued shortness of breath TECHNIQUE: 2 views of the chest were acquired. COMPARISON: None. FINDINGS: Surgical changes and devices: None. Lungs and pleura: Lungs are clear. No pleural effusions or pneumothorax. Mediastinum: Mediastinal contours are normal. Heart size is normal. Bones and chest wall: No suspicious bony abnormalities. Soft tissues appear unremarkable. IMPRESSION: No acute cardiopulmonary disease process. Dictated by: Lynn Rockwell MD, PhD on 11/16/2022 at 13:56 Approved by: Lynn Rockwell MD, PhD on 11/16/2022 at 13:56
== END ==
PROVIDERS: Family Provider Family Medicine; PCP Family Medicine; Referring Provider Family Medicine; Visit Provider Family Medicine
DX: J18.9 Pneumonia, unspecified organism (principal); Z85.46 Personal history of malignant neoplasm of prostate
CPT/HCPCS: 71046

== ENCOUNTER → 2022-12-20 13:42 | Outpatient (CLI) | payer OTHER, SELFPAY ==
--- NOTE | 2022-12-20 13:43 | DI.ECHO.S_ITS ---
[facility]---------+ [facility] +---------+ : : [address] : : : : [id number] : : : : Phone: [phone]---------+ Echocardiogram Report + + :Name: HANNA BEYER Study Date: 12/20/2022 Height: 70 in : :[facility] ReadingLocation: Weight: 254 lb : : Gender: Male BSA: 2.3 m2 : :: 1945 Age: 77 yrs BP: 123/76 mmHg: :Reason For Study: ATRIAL FIBRILLATION : :Ordering Physician: ZOILA, : :NATTY Performed By: Katerin Cardona : :Referring: NATTY CUMMINGS : + + Interpretation Summary The left ventricle is normal in size. The ejection fraction is estimated to be 60-65%. No significant change in LVEF. The right ventricle is normal in size and function. There is mild to moderate aortic regurgitation. Compared to the prior echo study, there has been no change in the severity of aortic regurgitation. The ascending aorta is mildly enlarged. 3.9 cm in diameter. Previously 4.1 cm. Procedure: A two-dimensional transthoracic echocardiogram with color flow and Doppler was performed. The study quality was technically adequate. Comparison is made with the echocardiogram of 04/08/2020. The patient was in atrial fibrillation with heart rates between 58-67 bpm during the exam. Left Ventricle: The left ventricle is normal in size. Proximal septal thickening is noted. There is no echo evidence for significant left ventricular outflow tract obstruction. There is no thrombus. The ejection fraction is estimated to be 60-65%. There are no focal wall motion abnormalities. Diastolic function could not be accurately assessed due to atrial fibrillation. Right Ventricle: The right ventricle is normal in size and function. Atria: The left atrium is severely dilated. There has been no significant change since the previous study. Right atrial size is normal. There is no Doppler evidence for an interatrial shunt. Mitral Valve: The mitral valve leaflets are slightly calcified. There is mild mitral annular calcification. There is mild mitral regurgitation. There has been no significant change since the previous study. Aortic Valve: The aortic valve is trileaflet. The aortic valve opens well. There is no aortic valve stenosis. There is mild to moderate aortic regurgitation. Compared to the prior echo study, there has been no change in the severity of aortic regurgitation. Tricuspid Valve: The tricuspid valve is normal. There is trace tricuspid regurgitation. Pulmonary artery pressures cannot be estimated because of the lack of a measurable TR jet velocity. Pulmonic Valve: The pulmonic valve is not well seen, but is grossly normal. There is trace pulmonic regurgitation. Great Vessels: The aortic root is normal size. There is aortic root sclerosis/calcification. The ascending aorta is mildly enlarged. The IVC is of normal diameter and collapses greater than 50% with a sniff. This suggests a low right atrial pressure of 3 mm Hg. Pericardium/ Pleura There is no pericardial effusion. There is an anterior echo-free space consistent with a fat pad. There is no pleural effusion. MMode/2D Measurements & Calculations LVIDd: 5.4 cm LVOT diam: 2.2 cm LVIDs: 3.5 cm Ao root diam: 4.0 cm FS: 35.0 % asc Aorta Diam: 3.9 cm IVSd: 1.1 cm Ao Arch Diam (Prox Trans): 3.0 cm LVPWd: 0.95 cm LV spencer. diameter/BSA (cm/m^2): 2.3 LV sys. diameter/BSA (cm/m^2): 1.5 LA A2 area: 26.8 cm2 RA long axis: 6.1 cm LA A4 area: 25.4 cm2 RA area: 18.5 cm2 LA length (vol): 6.4 cm RA vol: 47.3 ml LA vol: 89.9 ml RA : 20.5 ml/m2 LA vol index: 38.9 ml/m2 IVC diam: 1.1 cm RVD1 (basal): 3.6 cm RVD2 (mid): 2.6 cm TAPSE: 1.6 cm Doppler Measurements & Calculations Ao V2 max: 146.2 cm/sec LVOT Max Gibran: 90.9 cm/sec Ao V2 mean: 101.5 cm/sec LV V1 max P.3 mmHg Ao max P.5 mmHg LV V1 VTI: 19.6 cm Ao mean P.6 mmHg GREGORIO(I,D): 2.7 cm2 Ao V2 VTI: 28.6 cm GREGORIO(V,D): 2.4 cm2 sev ratio: 0.69 GREGORIO indexed to BSA (cm^2/m^2): 1.2 MV E max gibran: 94.1 cm/sec PA V2 max: 86.6 cm/sec MV A max gibran: 1.2 cm/sec PA V2 mean: 63.2 cm/sec MV E/A: 77.3 PA mean P.7 mmHg Med Peak E' Gibran: 8.6 cm/sec PA pr(Accel): 36.2 mmHg E/E' med: 11.0 Lat Peak E' Gibran: 12.6 cm/sec E/E' lat: 7.5 E/e' average: 9.2 MV dec time: 0.15 sec SV(LVOT): 76.6 ml Reading Physician:04:06 PM
--- NOTE | 2022-12-30 11:47 | DI.NM.S_ITS ---
DATE OF SERVICE: PROCEDURE: Exercise stress test. INDICATIONS: Chronic AFib, coronary artery disease. Exercise stress test was planned to rule out chronotropic incompetence. CARDIAC STRESS: Patient underwent exercise stress test under the supervision of an attending staff. The patient walked on Kristian protocol for 7 minutes and 19 seconds, achieved maximum heart rate of 138, which was 97% of target heart rate. Achieved 10.1 METS of workload. ANANDA - 26%. Normal blood pressure response and peak blood pressure 185/78 mmHg. Baseline heart rate AFib with heart rate around 59 beats per minute. The patient has a resting nonspecific ST flattening and some T- wave inversion in the inferolateral leads, which got more pronounced during stress with 1 to [address] depression in the inferolateral leads. The patient also had frequent PVCs including ventricular bigeminy pattern and ventricular couplets without any ventricular tachycardia. No chest pain or anginal symptoms. The patient felt shortness of breath. CONCLUSION: Exercise stress test is inconclusive for inducible ischemia due to baseline ST changes; however, there is no evidence of chronotropic incompetence. Baseline atrial fibrillation with controlled ventricular rate and rate around 59 beats per minute. However, maximum heart rate with atrial fibrillation 138 beats per minute. Intermittent premature ventricular contractions including ventricular bigeminy and some ventricular couplets without any ventricular tachycardia. No anginal symptoms. Normal blood pressure response and peak blood pressure 185/78 mmHg. Good exercise tolerance. Functional aerobic impairment -26%. Overall, not a high risk stress test. Jevon Dotson - LEROY/radha/christos doc#: [id number]/job#: [id number] dd: 12/20/2022 17:47:00 dt: 12/21/2022 00:45:00 DICTATING MD/COPIES TO: Abimael Ernandez MD COPIES MNE: SEBASTIAN;
== END ==
PROVIDERS: Family Provider Family Medicine; PCP Family Medicine; Referring Provider Internal Medicine Cardiovascular Disease; Visit Provider Internal Medicine Cardiovascular Disease
DX: I08.0 Rheumatic disorders of both mitral and aortic valves; I77.89 Other specified disorders of arteries and arterioles; I48.20 Chronic atrial fibrillation, unspecified; I50.9 Heart failure, unspecified
CPT/HCPCS: 93017; 93306

== ENCOUNTER → 2023-04-26 12:58 | Outpatient (CLI) | payer OTHER, SELFPAY ==
--- NOTE | 2023-04-26 13:00 | DI.CT.S_ITS ---
PROCEDURE: CT ABDOMEN PELVIS W CON INDICATIONS: Rising PSA after therapy. TECHNIQUE: After the administration of intravenous contrast, axial sections acquired from the lung bases to the pubic symphysis. Coronal and sagittal reformats were performed. For radiation dose reduction, the following was used: automated exposure control, adjustment of mA and/or kV according to patient size. COMPARISON: None. FINDINGS: Image quality: Excellent. Lung bases: Unremarkable. Heart: Calcification of the coronary vasculature. ABDOMEN: Liver: Unremarkable. Gallbladder: Unremarkable. Biliary ducts: Unremarkable. Pancreas: Unremarkable. Spleen: Unremarkable. Adrenal Glands: Unremarkable. Kidneys and Ureters: Unremarkable. Stomach and Bowel: Stomach, small bowel loops, and colon are unremarkable. Normal appendix. Peritoneum: No abnormal intraperitoneal fluid. No free air. Ventral Wall: No hernias. There is fat stranding in the periumbilical region. Abdominal Nodes: No retroperitoneal or mesenteric adenopathy by size criteria. Vessels: Aorta and inferior vena cava are normal in size. PELVIS: Pelvic Organs: Unremarkable. Bladder: Unremarkable. Pelvic Nodes: No enlarged lymph nodes. Miscellaneous: No hernias are seen. Bones: Mild chronic wedging of T8. IMPRESSION: 1. No acute process. 2. No evidence of malignancy. 3. Coronary artery disease. Dictated by: Jaun Zazueta M.D. on 04/26/2023 at 16:28 Approved by: Jaun Zazueta M.D. on 04/26/2023 at 16:30
[2023-04-26 13:34] LABS: Estimated Glomerular Filt Rate > 60 mL/min (>60)
[2023-04-26 13:35] LABS: BUN Creatinine Ratio 18.8 (6-22); Blood Urea Nitrogen 19 mg/dL (9-20); Estimated Glomerular Filt Rate > 60 mL/min (>60)
== END ==
PROVIDERS: Radiology Diagnostic Radiology; Family Provider Family Medicine; PCP Family Medicine; Referring Provider Urology; Visit Provider Urology
DX: C61 Malignant neoplasm of prostate (principal); R97.21 Rising PSA following treatment for malignant neoplasm of prostate; I25.10 Atherosclerotic heart disease of native coronary artery without angina pectoris
CPT/HCPCS: 36415; 74177; 82565; 84520

== ENCOUNTER → 2023-05-12 09:35 | Outpatient (CLI) | payer OTHER, SELFPAY ==
[2023-05-12 10:22] LABS: Influenza A - CEPHEID Flu A NEGATIVE (NEGATIVE); Influenza B - CEPHEID Flu B NEGATIVE (NEGATIVE); Respiratory Syncytial Virus Negative (Negative)
[2023-05-12 10:27] LABS: COVID-19 CEPHEID 4-PLEX PCR POSITIVE (Negative)
== END ==
PROVIDERS: Family Provider Family Medicine; PCP Family Medicine; Visit Provider Nurse Practitioner Family
DX: R05.1 Acute cough (principal)
CPT/HCPCS: 0241U

== ENCOUNTER → 2023-05-27 10:17 | Outpatient (CLI) | payer OTHER, SELFPAY ==
--- NOTE | 2023-05-27 10:18 | DI.NM.S_ITS ---
PROCEDURE: NM BONE SCAN WHOLE BODY RADIOPHARMACEUTICAL: 22.0 mCi Tc-99m MDP IV. INDICATIONS: Rising PSA after radiation therapy TECHNIQUE: Delayed whole-body scintigrams were obtained approximately 3-4 hours after intravenous injection of radiotracer. Anterior and posterior views were acquired from vertex to feet. Additional left and right oblique views of the pelvis were obtained. COMPARISON: [facility], CR, XR CHEST 2V, 11/16/2022, 13:34. [facility], CT, CT ABDOMEN PELVIS W CON, 04/26/2023, 13:43. FINDINGS: There is increased activity in midthoracic spine. No lesions are identified in skull, sternum, clavicles, scapulae, ribs, bony pelvis, and visualized shafts of the long bones. There are foci of increased uptake in thoracic and lumbar spine most likely secondary to degenerative disc and facet disease; early metastasis to spine could be obscured by degenerative changes. There are foci of increased periarticular activity most pronounced in ankles bilaterally, compatible with degenerative/arthritic changes. Bladder is mildly distended. IMPRESSION: 1. Increased activity in mid thoracic spine. Recommend radiographic correlation. 2. Elsewhere, no definitive scintigraphic findings to suggest osseous metastasis. 3. Degenerative and arthritic changes as noted. Dictated by: Catherine Davis M.D. on 05/27/2023 at 17:22 Approved by: Catherine Davis M.D. on 05/27/2023 at 20:02
== END ==
PROVIDERS: Family Provider Family Medicine; PCP Family Medicine; Referring Provider Urology; Visit Provider Urology
DX: C61 Malignant neoplasm of prostate (principal); R97.21 Rising PSA following treatment for malignant neoplasm of prostate
CPT/HCPCS: 78306; A9503

== ENCOUNTER → 2023-05-31 13:59 | Outpatient (CLI) | payer OTHER, SELFPAY ==
[2023-05-31 16:10] LABS: Prostate Specific Antigen 9.37 ng/mL (0.10-4.00)
== END ==
PROVIDERS: Family Provider Family Medicine; PCP Family Medicine; Referring Provider Urology; Visit Provider Urology
DX: R97.21 Rising PSA following treatment for malignant neoplasm of prostate (principal)
CPT/HCPCS: 36415; 84153

== ENCOUNTER → 2023-08-18 08:12 | Outpatient (CLI) | payer OTHER, SELFPAY ==
--- NOTE | 2023-08-18 08:13 | DI.ECHO.S_ITS ---
[facility]---------+ [facility] +---------+ : : [address] : [address] : : : : [address] : : : : Phone: [phone] +---------+ Echocardiogram Report + + :Name: HANNA BEYER Study Date: 08/18/2023 Height: 70 in : :[facility] ReadingLocation: Weight: 245 lb : : Gender: Male BSA: 2.3 m2 : :: 1945 Age: 78 yrs BP: 129/80 mmHg: :Reason For Study: ISCHEMIC HEART DISEASE : :Ordering Physician: TINY, : :ELZBIETA Performed By: Saran Paz : :Referring: ELZBIETA SOTOMAYOR : + + Interpretation Summary Chronic A-fib with controlled ventricular rate. The left ventricle is normal in size. The left ventricular ejection fraction is normal. The ejection fraction is estimated to be 60-65%. There has been no significant change in LVEF since the previous exam. The right ventricle is grossly normal size.Visually RV function appears to be preserved. There is mild to moderate aortic regurgitation. Previously moderate aortic regurgitation. The IVC is of normal diameter and collapses greater than 50% with a sniff. This suggests a low right atrial pressure of 3 mm Hg. Procedure: A two-dimensional transthoracic echocardiogram with color flow and Doppler was performed. The study quality was technically adequate. Comparison is made with the echocardiogram of 12/20/2022. The patient was in atrial fibrillation with heart rates between 53-82 bpm during the exam. Left Ventricle: The left ventricle is normal in size. Proximal septal thickening is noted. There is no echo evidence for significant left ventricular outflow tract obstruction. There is no thrombus. The ejection fraction is estimated to be 60-65%. The left ventricular ejection fraction is normal. There has been no significant change since the previous exam. There are no focal wall motion abnormalities. E/E' med: 12.0. Right Ventricle: The right ventricle is grossly normal size. Visually RV function appears to be preserved. Atria: The left atrium is severely dilated. There has been no significant change since the previous study. Right atrial size is normal. The interatrial septum grossly appears intact with no obvious evidence for an atrial septal defect. Mitral Valve: There is mild mitral annular calcification. There is no mitral valve stenosis. There is mild mitral regurgitation. Compared to the prior echo study, there has been no change in the severity of mitral regurgitation. Aortic Valve: The aortic valve is trileaflet. The aortic valve is moderately calcified. There is no aortic valve stenosis. There is mild to moderate aortic regurgitation. Tricuspid Valve: The tricuspid valve is normal in structure and function. There is no tricuspid stenosis. There is trace tricuspid regurgitation. No significant pulmonary hypertension. Pulmonic Valve: The pulmonic valve is not well visualized. There is no pulmonic valvular stenosis. There is a trace or physiologic amount of pulmonic regurgitation. Great Vessels: The aortic root is normal size. The ascending aorta is at the upper limits of normal in size. The IVC is of normal diameter and collapses greater than 50% with a sniff. This suggests a low right atrial pressure of 3 mm Hg. Pericardium/ Pleura There is no pericardial effusion. There is an anterior echo-free space consistent with a fat pad. There is no pleural effusion. MMode/2D Measurements & Calculations LVIDd: 4.0 cm LVOT diam: 2.4 cm LVIDs: 2.9 cm Ao root diam: 3.5 cm FS: 27.8 % asc Aorta Diam: 3.9 cm IVSd: 1.3 cm Ao Arch Diam (Prox Trans): 2.8 cm LVPWd: 1.4 cm LV spencer. diameter/BSA (cm/m^2): 1.7 LV sys. diameter/BSA (cm/m^2): 1.3 LA A2 area: 25.1 cm2 RA long axis: 5.0 cm LA A4 area: 24.7 cm2 RA area: 18.2 cm2 LA length (vol): 6.4 cm RA vol: 55.8 ml LA vol: 82.0 ml RA : 24.5 ml/m2 LA vol index: 36.0 ml/m2 IVC diam: 1.7 cm RVD1 (basal): 3.8 cm RVD2 (mid): 3.7 cm TAPSE: 1.5 cm Doppler Measurements & Calculations Ao V2 max: 144.1 cm/sec LVOT Max Gibran: 101.9 cm/sec Ao V2 mean: 101.3 cm/sec LV V1 max P.2 mmHg Ao max P.4 mmHg LV V1 VTI: 22.2 cm Ao mean P.6 mmHg GREGORIO(I,D): 3.2 cm2 Ao V2 VTI: 31.1 cm GREGORIO(V,D): 3.2 cm2 sev ratio: 0.71 GREGORIO indexed to BSA (cm^2/m^2): 1.4 AI P1/2t: 725.8 msec AI dec slope: 192.7 cm/sec2 MV E max gibran: 79.0 cm/sec TR max gibran: 179.8 cm/sec MV A max gibran: 19.9 cm/sec TR max P.9 mmHg MV E/A: 4.0 PA V2 max: 75.8 cm/sec Med Peak E' Gibran: 6.6 cm/sec PA V2 mean: 54.4 cm/sec E/E' med: 12.0 PA mean P.3 mmHg Lat Peak E' Gibran: 10.9 cm/sec PA pr(Accel): 64.7 mmHg E/E' lat: 7.2 E/e' average: 9.6 MV dec time: 0.12 sec SV(LVOT): 100.6 ml Reading Physician:11:50 AM
== END ==
PROVIDERS: Family Provider Family Medicine; PCP Family Medicine; Referring Provider Chiropractor; Visit Provider Chiropractor
DX: I25.9 Chronic ischemic heart disease, unspecified (principal); I08.0 Rheumatic disorders of both mitral and aortic valves
CPT/HCPCS: 93306

== ENCOUNTER → 2023-11-23 08:15 | Outpatient (CLI) | payer OTHER, SELFPAY ==
[2023-11-23 11:13] LABS: Prostate Specific Antigen 7.81 ng/mL (0.10-4.00)
== END ==
LOC: LAB 08:16
PROVIDERS: Family Provider Family Medicine; PCP Family Medicine; Referring Provider Urology; Visit Provider Urology
DX: R97.21 Rising PSA following treatment for malignant neoplasm of prostate (principal); C61 Malignant neoplasm of prostate
CPT/HCPCS: 36415; 84153

== ENCOUNTER 2024-02-07 16:03 | Emergency (ER) | payer OTHER, SELFPAY ==
[2024-02-07 16:10] VITALS: BP 146/73; PULSE 74; RESP 18; TEMP 37.1; O2SAT 95; BMI 34.4
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
[2024-02-07 16:42] LABS: Add Manual Diff / Slide Review NO; Basophils Absolute Auto 0 /uL (0-100); Basophils Percent Auto 0.8 % (0-2); Eosinophils Absolute Auto 100 /uL (0-450); Eosinophils Percent Auto 0.8 % (2-4); Hematocrit 42.2 % (41-53); Lymphocytes Absolute Auto 1100 /uL (1100-4500); Lymphocytes Percent Auto 17.6 % (25-40); Mean Corpuscular HGB Conc 33.2 % (30-36); Mean Corpuscular Hemoglobin 31.1 PG (26-34); Mean Corpuscular Volume 93.7 fL (80-100); Monocytes Absolute Auto 500 /uL (0-900); Monocytes Percent Auto 7.6 % (3-14); Neutrophils Absolute Auto 4700 /uL (1500-7000); Neutrophils Percent Auto 73.2 % (50-75); Platelet Count 172 X10^3/uL (150-400); Red Cell Distribution Width 14.3 % (11.6-14.8); White Blood Cell Count 6.4 X10^3/uL (4.5-11.0)
[2024-02-07 16:49] VITALS: PULSE 74
[2024-02-07 16:51] VITALS: BP 138/79; PULSE 68; RESP 19; O2SAT 96
[2024-02-07 16:51] LABS: INR 1.3 (0.9-1.3); Prothrombin Time 14.6 SECONDS (9.4-12.5)
[2024-02-07 16:54] LABS: PTT Partial Thromboplastin Tim 38 SECONDS (25.1-36.5)
[2024-02-07 16:55] LABS: Alanine Aminotransferase 27 IU/L (<50); Albumin Globulin Ratio 1.3 (1.0-2.8); Alkaline Phosphatase 67 U/L (38-126); Aspartate Aminotransferase 35 IU/L (17-59); BUN Creatinine Ratio 26.8 (6-22); Bilirubin Total 0.8 mg/dL (0.2-1.3); Blood Urea Nitrogen 26 mg/dL (9-20); Calcium 9.1 mg/dL (8.4-10.2); Carbon Dioxide 26 mmol/L (22-32); Chloride 106 mmol/L (98-107); Estimated Glomerular Filt Rate > 60 mL/min (>60); Globulin 3.2 g/dL (1.7-4.1); Glucose 108 mg/dL (80-110); Sodium 136 mmol/L (137-145); Total Protein 7.2 g/dL (6.3-8.2)
[2024-02-07 16:56] LABS: HEMOLYSIS 54 (0-50)
[2024-02-07 17:00] VITALS: BP 130/75; PULSE 70; RESP 17; O2SAT 96
[2024-02-07 17:15] VITALS: BP 128/70; PULSE 71; RESP 17; O2SAT 94
[2024-02-07 17:38] VITALS: BP 128/70; PULSE 69; RESP 20; O2SAT 96
== END 2024-02-07 17:36 | disposition home or self-care (01) ==
PROVIDERS: Emergency Provider Emergency Medicine; Family Provider Family Medicine; PCP Family Medicine
DX: M79.652 Pain in left thigh (principal); Z79.01 Long term (current) use of anticoagulants; V53.5XXA Driver of pick-up truck or van injured in collision with car, pick-up truck or van in traffic accident, initial encounter
CPT/HCPCS: 73502; 80053; 85025; 85610; 85730; 86850; 86900; 86901; 99284

== ENCOUNTER → 2024-02-28 14:50 | Outpatient (CLI) | payer OTHER, SELFPAY | LOC: LAB 14:51 | PROVIDERS: Family Provider Family Medicine; PCP Family Medicine; Referring Provider Urology; Visit Provider Urology | DX: Z85.46 Personal history of malignant neoplasm of prostate (principal); R39.9 Unspecified symptoms and signs involving the genitourinary system | CPT/HCPCS: 36415; 84153 ==

== ENCOUNTER → 2024-05-30 07:37 | Outpatient (CLI) | payer OTHER, SELFPAY ==
[2024-05-30 10:04] LABS: Prostate Specific Antigen 8.56 ng/mL (0.10-4.00)
== END ==
PROVIDERS: Family Provider Family Medicine; PCP Family Medicine; Referring Provider Urology; Visit Provider Urology
DX: R97.21 Rising PSA following treatment for malignant neoplasm of prostate (principal); Z85.46 Personal history of malignant neoplasm of prostate
CPT/HCPCS: 36415; 84153

== ENCOUNTER → 2024-08-01 10:26 | Outpatient (CLI) | payer OTHER, SELFPAY ==
[2024-08-01 14:19] LABS: Prostate Specific Antigen 9.16 ng/mL (0.10-4.00)
[2024-08-01 14:34] LABS: Add Manual Diff / Slide Review NO; Basophils Absolute Auto 100 /uL (0-100); Basophils Percent Auto 1.1 % (0-2); Eosinophils Absolute Auto 100 /uL (0-450); Eosinophils Percent Auto 2.6 % (2-4); Hematocrit 44.6 % (41-53); Hemoglobin 14.8 g/dL (13.5-17.5); Lymphocytes Absolute Auto 1300 /uL (1100-4500); Lymphocytes Percent Auto 24.9 % (25-40); Mean Corpuscular HGB Conc 33.1 % (30-36); Mean Corpuscular Hemoglobin 31.2 PG (26-34); Mean Corpuscular Volume 94.4 fL (80-100); Monocytes Absolute Auto 400 /uL (0-900); Monocytes Percent Auto 7.6 % (3-14); Neutrophils Absolute Auto 3400 /uL (1500-7000); Neutrophils Percent Auto 63.8 % (50-75); Platelet Count 194 X10^3/uL (150-400); Red Blood Cell Count 4.73 X10^6/uL (4.5-5.9); Red Cell Distribution Width 13.9 % (11.6-14.8); White Blood Cell Count 5.4 X10^3/uL (4.5-11.0)
[2024-08-01 14:57] LABS: Alanine Aminotransferase 34 IU/L (<50); Albumin 4.4 g/dL (3.5-5.0); Albumin Globulin Ratio 1.6 (1.0-2.8); Alkaline Phosphatase 84 U/L (38-126); Aspartate Aminotransferase 44 IU/L (17-59); BUN Creatinine Ratio 17.6 (6-22); Bilirubin Total 0.8 mg/dL (0.2-1.3); Blood Urea Nitrogen 18 mg/dL (9-20); Calcium 9.4 mg/dL (8.4-10.2); Carbon Dioxide 29 mmol/L (22-32); Chloride 103 mmol/L (98-107); Cholesterol 158 mg/dL (140-199); Estimated Glomerular Filt Rate > 60 mL/min (>60); Globulin 2.8 g/dL (1.7-4.1); Glucose 82 mg/dL (80-110); HDL Cholesterol 47 mg/dL (40-60); HEMOLYSIS < 15 (0-50); LDL Cholesterol Calculated 94 mg/dL (<100); Potassium 4.4 mmol/L (3.4-5.1); Sodium 139 mmol/L (137-145); Total Protein 7.2 g/dL (6.3-8.2); Triglycerides 84 mg/dL (35-150)
[2024-08-01 15:14] LABS: Free T4, Direct Thyroxine 1.21 ng/dL (0.78-2.19)
[2024-08-01 15:28] LABS: Thyroid Stimulating Hormone 2.27 uIU/mL (0.47-4.68)
== END ==
PROVIDERS: Urology; Family Provider Family Medicine; PCP Family Medicine; Referring Provider Nurse Practitioner; Visit Provider Nurse Practitioner
DX: R97.21 Rising PSA following treatment for malignant neoplasm of prostate (principal); E78.5 Hyperlipidemia, unspecified; I25.10 Atherosclerotic heart disease of native coronary artery without angina pectoris; R97.20 Elevated prostate specific antigen [PSA]
CPT/HCPCS: 36415; 80053; 80061; 84153; 84439; 84443; 85025

== ENCOUNTER → 2024-09-21 10:36 | Outpatient (CLI) | payer OTHER, SELFPAY ==
--- NOTE | 2024-09-21 10:42 | DI.RAD.S_ITS ---
PROCEDURE: XR CHEST 2V INDICATIONS: COUGH TECHNIQUE: 2 views of the chest were acquired. COMPARISON: [facility], CR, XR CHEST 2V, 11/16/2022, 13:34. FINDINGS: Surgical changes and devices: None. Lungs and pleura: Lungs are clear. No pleural effusions or pneumothorax. Mediastinum: Mediastinal contours are normal. Heart size is normal. Bones and chest wall: No suspicious bony abnormalities. Soft tissues appear unremarkable. IMPRESSION: No acute cardiopulmonary abnormality is seen. Dictated by: Abhijeet Mijares M.D. on 09/21/2024 at 13:10 Approved by: Abhijeet Mijares M.D. on 09/21/2024 at 13:12
== END ==
PROVIDERS: Family Provider Family Medicine; PCP Family Medicine; Referring Provider Nurse Practitioner; Visit Provider Nurse Practitioner
DX: R05.9 Cough, unspecified (principal)
CPT/HCPCS: 71046

== ENCOUNTER → 2024-09-24 07:59 | Outpatient (CLI) | payer OTHER, SELFPAY ==
--- NOTE | 2019-09-25 08:28 | DI.ECHO.S_ITS ---
Version 2 [facility]---------+ [facility] : : [address] : : [place] : : [address] : : Phone: [phone] Echocardiogram Report + + :Name: HANNA BEYER Study Date: 09/24/2024 Height: 70 in : :[facility] ReadingLocation: [facility] Weight: 258 lb : : Gender: Male BSA: 2.3 m2 : :: 1945 Age: 79 yrs BP: 138/79 mmHg: :Reason For Study: SOB/AFIB : : Performed By: Maura Sheriff : :Referring: MELA EGAN W : + + Interpretation Summary The left ventricle is normal in size. The left ventricular ejection fraction is normal. The ejection fraction is estimated to be 60-65%. No significant change in LVEF from the previous study. The right ventricle is mildly dilated. The right ventricular systolic function is normal. There is mild aortic regurgitation. Previously moderate aortic regurgitation. The aortic root is mildly dilated. The IVC is of normal diameter and collapses greater than 50% with a sniff. This suggests a low right atrial pressure of 3 mm Hg. Procedure: A two-dimensional transthoracic echocardiogram with color flow and Doppler was performed. The study quality was technically adequate. Comparison is made with the echocardiogram of 08/18/2023. The patient was in atrial fibrillation with heart rates between 55-70 bpm during the exam. Left Ventricle: The left ventricle is normal in size. Left ventricular wall thickness is borderline increased. There is no thrombus. The ejection fraction is estimated to be 60-65%. The left ventricular ejection fraction is normal. There are no focal wall motion abnormalities. Diastolic function could not be accurately assessed due to atrial fibrillation. Right Ventricle: The right ventricle is mildly dilated. The right ventricular systolic function is normal. Atria: The left atrium is severely dilated. There has been no significant change since the previous study. Right atrial size is normal. There is no Doppler evidence for an interatrial shunt. Mitral Valve: The mitral valve leaflets appear mildly thickened, but open well. There is mild mitral annular calcification. There is mild mitral regurgitation. There has been no significant change since the previous study. Aortic Valve: The aortic valve is trileaflet. The aortic valve opens well. Mild to moderately calcified. There is no aortic valve stenosis. There is mild aortic regurgitation. Tricuspid Valve: The tricuspid valve is not well visualized, but is grossly normal. Pulmonary artery pressures cannot be estimated because of the lack of a measurable TR jet velocity but the IVC suggests a CVP of around 3 mmHg. There is trace tricuspid regurgitation. Pulmonic Valve: The pulmonic valve is not well seen, but is grossly normal. There is a trace or physiologic amount of pulmonic regurgitation. Great Vessels: The aortic root is mildly dilated. The aortic arch could not be visualized. The ascending aorta is at the upper limits of normal in size. The pulmonary artery is not well visualized, but is probably normal size. The IVC is of normal diameter and collapses greater than 50% with a sniff. This suggests a low right atrial pressure of 3 mm Hg. Pericardium/ Pleura There is no pericardial effusion. There is no pleural effusion. MMode/2D Measurements & Calculations LVIDd: 5.1 cm LVOT diam: 2.7 cm LVIDs: 4.2 cm Ao root diam: 4.4 cm FS: 17.2 % asc Aorta Diam: 4.0 cm EPSS: 0.21 cm IVSd: 1.1 cm LVPWd: 1.1 cm LV spencer. diameter/BSA (cm/m^2): 2.2 LV sys. diameter/BSA (cm/m^2): 1.8 LA A2 area: 30.1 cm2 RA long axis: 5.4 cm LA A4 area: 30.6 cm2 RA area: 18.7 cm2 LA length (vol): 7.1 cm RA vol: 54.9 ml LA vol: 110.0 ml RA : 23.6 ml/m2 LA vol index: 47.3 ml/m2 IVC diam: 1.5 cm TAPSE: 2.2 cm Doppler Measurements & Calculations Ao V2 max: 128.7 cm/sec LVOT Max Gibran: 96.4 cm/sec Ao V2 mean: 92.1 cm/sec LV V1 max P.7 mmHg Ao max P.6 mmHg LV V1 VTI: 21.1 cm Ao mean P.8 mmHg GREGORIO(I,D): 3.9 cm2 Ao V2 VTI: 30.3 cm GREGORIO(V,D): 4.2 cm2 sev ratio: 0.70 GREGORIO indexed to BSA (cm^2/m^2): 1.7 PA V2 max: 74.3 cm/sec SV(LVOT): 118.5 ml PA V2 mean: 50.9 cm/sec PA mean P.2 mmHg PA pr(Accel): 25.3 mmHg Reading Physician:03:40 PM
--- NOTE | 2024-09-24 08:02 | DI.NM.S_ITS ---
PROCEDURE: NM LIEN PERF SPECT REST & STR Rest and exercise myocardial perfusion SPECT with gated imaging and ejection fraction RADIOPHARMACEUTICAL: 27.5 mCi Tc-99m sestamibi IV at rest and 26.3 mCi Tc-99m sestamibi IV at peak exercise. A 1 day-protocol was performed. INDICATIONS: SOB/AFIB PQRS ATTESTATIONS: Measure 322 - Is this imaging test primarily performed on a low-risk surgery patient for preoperative evaluation within 30 days preceding their low-risk non-cardiac surgery? Low-risk surgery is defined as cardiac or myocardial infarction less than 1%, including (but not limited to) endoscopic procedures, superficial procedures, cataract surgery, and excisional breast surgery: Answer: No Measure 323 - Is this imaging test performed primarily for the monitoring of an asymptomatic patient who had percutaneous coronary intervention on the visit date or within 2 years of the visit date? Answer: No Measure 324 - Is this imaging test performed primarily for the initial detection and risk assessment on an asymptomatic, low coronary heart disease patient? Low CHD risk definition = clinicians should consider the maximum number of available patient factors used to estimate risk based on [place] (ATP III criteria), typically age, gender, diabetes, smoking status, and use of blood pressure medication, and integrate age appropriate estimates for missing elements, such as LDL or standard blood pressure. Answer: No TECHNIQUE: Radiopharmaceutical was injected at peak stress test, and also at rest. SPECT images were obtained. SPECT myocardial perfusion images were displayed in short axis, horizontal long axis, and vertical long axis views. Gated images were reviewed using Auto[employer] software. COMPARISON: None. CARDIAC STRESS: A standard Kristian treadmill exercise tolerance test was performed by the patient under the supervision of an attending staff. The patient exercised for 6 minutes and 29 seconds; functional aerobic impairment (ANANDA) is -20%. Hemodynamic data: There is normal blood pressure and heart rate response to exercise stress. Patient achieved 101% of maximum predicted heart rate at peak exercise. Symptoms: Patient denied chest pain during exercise. EKG: Baseline ECG demonstrated atrial fibrillation. Frequent PVCs noted during exercise phase. Horizontal ST depressions noted in the anterior lateral leads at 5 minutes and 50 seconds in the stress phase. ST segment resolution occurred at 1 minute into recovery. FINDINGS: Raw data: There is good myocardial labeling by radiotracer. No significant motion artifacts. [id number] ratio is 0.34 (normal is less than 0.38 for sestamibi tracer, and less than 0.50 for thallium tracer). Left ventricle function: Gated images demonstrate normal left ventricle wall thickening. No segmental wall motion abnormality. No transient ischemic dilation; TID is 1.12 (normal less than 1.3). The left ventricle resting end-diastolic volume is 149 mL. Left ventricle stress ejection fraction is 68; normal values are above 45%. Myocardial perfusion: There was slight hypoperfusion in the apical segment noted in both the rest and stress images. No other perfusion defects identified. Prone images had no perfusion defects. These findings suggest the presence of soft tissue attenuation. IMPRESSION: 1. Negative exercise myocardial perfusion scan for ischemia and infarction. 2. Above average exercise tolerance. Dictated by: Fernandez Albarran M.D. on 09/25/2024 at 16:52 Approved by: Fernandez Albarran M.D. on 09/25/2024 at 16:57
== END ==
LOC: ECHO 08:00
PROVIDERS: Family Provider Family Medicine; PCP Family Medicine; Referring Provider Nurse Practitioner; Visit Provider Nurse Practitioner
DX: I48.91 Unspecified atrial fibrillation (principal); I77.810 Thoracic aortic ectasia; I08.0 Rheumatic disorders of both mitral and aortic valves; I25.10 Atherosclerotic heart disease of native coronary artery without angina pectoris; R06.02 Shortness of breath
CPT/HCPCS: 78452; 93017; 93306; A9502

== ENCOUNTER → 2025-04-01 10:00 | Outpatient (CLI) | payer OTHER, SELFPAY ==
[2025-04-01 11:21] LABS: Prostate Specific Antigen 11.7 ng/mL (0.10-4.00)
== END ==
PROVIDERS: Family Provider Family Medicine; PCP Family Medicine; Referring Provider Urology; Visit Provider Urology
DX: C61 Malignant neoplasm of prostate (principal); R97.21 Rising PSA following treatment for malignant neoplasm of prostate
CPT/HCPCS: 36415; 84153